=== PATIENT | female | born 1950 | race Caucasian/White ===

== ENCOUNTER → 2017-02-17 | Outpatient (CLI) | payer OTHER ==
[~2017-02-17] MED LIST: AMLO5TAB2 PO; CHOL1000 PO; CYCL10TA6 PO; GLUCTAB7; LPR25 PO; LUTE20CA; MAGN400C2 PO; MULTCHW; POTA20TA16 PO; PSYL0.524; TRAM-10 PO; TRIATAB3 PO; WARF1TAB6 PO; WARF7.5T PO; WARF7.5T4 PO
[2017-02-17 08:52] LABS: BASO % 0.6 %; BASO ABS # 0.03 K/uL (0-0.2); COMPLETE YES; EOS % 1.2 %; HEMATOCRIT 43.9 % (37-47); IG% 0.2 %; LYMPH % 28.6 %; LYMPH ABS # 1.48 K/uL (1.2-3.4); MEAN CORPUSCULAR HEMOGLOBIN 27.8 pg (25-34); MEAN CORPUSCULAR HGB CONC 33.5 g/dl (32-36); MEAN PLATELET VOLUME 10.9 fL (7.4-10.4); MONO % 11.4 %; PLATELET COUNT 176 K/uL (130-400); RED BLOOD COUNT 5.29 M/uL (4.2-5.4); WHITE BLOOD COUNT 5.17 K/uL (4.8-10.8)
[2017-02-17 09:17] LABS: ALT/SGPT 24 U/L (12-78); AST/SGOT 19 U/L (15-37); BLOOD UREA NITROGEN 11 mg/dl (7-18); BUN/CREATININE RATIO 13.4 (10-20); CALCIUM 8.6 mg/dl (8.5-10.1); CARBON DIOXIDE 30 mmol/L (21-32); CHLORIDE 105 mmol/L (98-107); CHOLESTEROL 183 mg/dl (0-200); CREATININE 0.82 mg/dl (0.60-1.20); GLUCOSE 95 mg/dl (70-99); POTASSIUM 3.6 mmol/L (3.5-5.1); SODIUM 142 mmol/L (136-145); TRIGLYCERIDES 146 mg/dl (0-150); VERY LOW DENSITY LIPOPROT CALC 29 mg/dl
[2017-02-17 09:27] LABS: ALB/GLOB RATIO 1.1 (0.9-2); ALKALINE PHOSPHATASE 105 U/L (45-117); CHOLESTEROL/HDL RATIO 3.2; HDL CHOLESTEROL 57 mg/dl; LDL CHOLESTEROL CALCULATED 97 mg/dl
== END | disposition home or self-care (01) ==
LOC: C.LAB 08:03
PROVIDERS: ATTEND Internal Medicine
DX: M54.5 Low back pain (principal)

== ENCOUNTER → 2017-03-12 | Outpatient (CLI) | payer OTHER ==
--- NOTE | 2017-03-13 13:08 | MAMMOGRAPHY REPORT ---
BILATERAL DIGITAL SCREENING MAMMOGRAM WITH CAD: 03/12/2017 CLINICAL HISTORY: Routine screening. Patient has no complaints. TECHNIQUE: Bilateral CC and MLO views were obtained. Current study was also evaluated with a Comput er Aided Detection (CAD) system. COMPARISON: Comparison is made to exams dated: 03/08/2016 mammogram, 03/02/2015 mammogram, 12/25/2013 mammogram, 12/19/2012 mammogram, 12/18/2011 mammogram, and 12/13/2010 mammogram - [facility] nter. BREAST COMPOSITION: There are scattered areas of fibroglandular density in both breasts. FINDINGS: The parenchymal pattern is unchanged. There are a few scattered stable benign-appearing calcifications bilaterally. No developing mass, architectural distortion or cluster of suspicious m icrocalcifications is seen in either breast. IMPRESSION: ACR BI-RADS CATEGORY 2: BENIGN There is no mammographic evidence of malignancy. A 1 year screening mammogram is recommended. The p atient will receive written notification of the results. Approximately 10% of breast cancers are not detected with mammography. A negative mammographic repor t should not delay biopsy if a clinically suggestive mass is present. Isa Siddiqui M.D. ay/:03/12/2017 16:35:59 Clerical Coordinator: Yaquelin SÁNCHEZ(Sandra)(Evan)(BD), [facility] letter sent: Normal 1/2 BI-RADS Code: ACR BI-RADS Category 2: Benign
== END | disposition home or self-care (01) ==
LOC: C.MAMM 15:48
PROVIDERS: ATTEND Obstetrics & Gynecology
DX: Z12.31 Encounter for screening mammogram for malignant neoplasm of breast (principal)

== ENCOUNTER → 2018-02-26 | Outpatient (CLI) | payer OTHER ==
[~2018-02-26] MED LIST changes: +POTA-639 PO; -POTA20TA16 PO; -WARF1TAB6 PO
[2018-02-26 16:42] LABS: BASO % 0.8 %; BASO ABS # 0.05 K/uL (0-0.2); EOS % 1.8 %; EOS ABS # 0.11 K/uL (0-0.5); HEMOGLOBIN 14.2 g/dL (12.0-16.0); LYMPH % 34.8 %; LYMPH ABS # 2.18 K/uL (1.2-3.4); MEAN CELL VOLUME 84.6 fL (80-100); MEAN PLATELET VOLUME 11.3 fL (7.4-10.4); MONO ABS # 0.69 K/uL (0.11-0.59); NEUT % 51.6 %; NEUT ABS # 3.23 K/uL (1.4-6.5); PLATELET COUNT 187 K/uL (130-400); RED CELL DISTRIBUTION WIDTH CV 15.1 % (11.5-14.5); RED CELL DISTRIBUTION WIDTH SD 46.8 fL (36.4-46.3); WHITE BLOOD COUNT 6.26 K/uL (4.8-10.8)
== END | disposition home or self-care (01) ==
LOC: C.LAB1850 15:24
PROVIDERS: ATTEND Nurse Practitioner Family
DX: R21 Rash and other nonspecific skin eruption (principal)

== ENCOUNTER → 2018-03-13 | Outpatient (CLI) | payer OTHER ==
--- NOTE | 2018-03-14 12:41 | MAMMOGRAPHY REPORT ---
BILATERAL DIGITAL SCREENING MAMMOGRAM TOMOSYNTHESIS WITH CAD: 03/13/2018 CLINICAL HISTORY: Routine screening. Patient has no complaints. TECHNIQUE: Breast tomosynthesis in addition to standard 2D mammography was performed. Current study was also evaluated with a Computer Aided Detection (CAD) system. COMPARISON: Comparison is made to exams dated: 03/12/2017 mammogram, 03/08/2016 mammogram, 03/02/2015 ma mmogram, 12/25/2013 mammogram, 12/19/2012 mammogram, and 12/18/2011 mammogram - [facility] er. BREAST COMPOSITION: There are scattered areas of fibroglandular density in both breasts. FINDINGS: There are stable benign-appearing rodlike and coarse calcifications in the breasts. No dejuan picious mass, architectural distortion or cluster of microcalcifications is seen. IMPRESSION: ACR BI-RADS CATEGORY 1: NEGATIVE There is no mammographic evidence of malignancy. A 1 year screening mammogram is recommended. The pa tient will receive written notification of the results. Approximately 10% of breast cancers are not detected with mammography. A negative mammographic report should not delay biopsy if a clinically suggestive mass is present. Isa Siddiqui M.D. ay/:03/13/2018 16:40:47 Manager Restaurant: Mari Andrea, [facility] letter sent: Normal 1/2 BI-RADS Code: ACR BI-RADS Category 1: Negative
== END | disposition home or self-care (01) ==
LOC: C.MAMM 16:21
PROVIDERS: ATTEND Internal Medicine
DX: Z12.31 Encounter for screening mammogram for malignant neoplasm of breast (principal)

== ENCOUNTER → 2018-05-30 | Outpatient (CLI) | payer OTHER ==
[~2018-05-30] MED LIST changes: -GLUCTAB7
[2018-05-30 09:34] LABS: BASO ABS # 0.06 K/uL (0-0.2); EOS % 0.7 %; EOS ABS # 0.04 K/uL (0-0.5); HEMATOCRIT 47.6 % (37-47); LYMPH % 32.4 %; LYMPH ABS # 1.93 K/uL (1.2-3.4); MEAN CELL VOLUME 83.2 fL (80-100); MEAN CORPUSCULAR HGB CONC 33.6 g/dl (32-36); MEAN PLATELET VOLUME 11.4 fL (7.4-10.4); MONO % 11.7 %; NEUT % 54.2 %; NEUT ABS # 3.23 K/uL (1.4-6.5); PLATELET COUNT 188 K/uL (130-400); RED CELL DISTRIBUTION WIDTH CV 14.9 % (11.5-14.5); RED CELL DISTRIBUTION WIDTH SD 45.4 fL (36.4-46.3); WHITE BLOOD COUNT 5.96 K/uL (4.8-10.8)
[2018-05-30 10:12] LABS: ALBUMIN 3.8 gm/dl (3.4-5.0); ALKALINE PHOSPHATASE 104 U/L (45-117); ALT/SGPT 20 U/L (12-78); AST/SGOT 18 U/L (15-37); BLOOD UREA NITROGEN 15 mg/dl (7-18); CALCIUM 8.9 mg/dl (8.5-10.1); CARBON DIOXIDE 30 mmol/L (21-32); CHOLESTEROL 153 mg/dl (0-200); CREATININE 0.95 mg/dl (0.60-1.20); GLUCOSE 91 mg/dl (70-99); LDL CHOLESTEROL CALCULATED 73 mg/dl; POTASSIUM 3.7 mmol/L (3.5-5.1); SODIUM 140 mmol/L (136-145); TOTAL PROTEIN 7.5 gm/dl (6.4-8.2)
== END | disposition home or self-care (01) ==
LOC: C.LAB 07:34
PROVIDERS: ATTEND Internal Medicine
DX: I10 Essential (primary) hypertension (principal); I48.91 Unspecified atrial fibrillation; M13.0 Polyarthritis, unspecified; M54.5 Low back pain; G43.909 Migraine, unspecified, not intractable, without status migrainosus

== ENCOUNTER 2019-02-26 14:25 | Inpatient (IN) ==
[2019-02-26] MEDS ORDERED: dilTIAZem HCl 5 MG/ML 5 ML VIAL IV STA (15:49)
--- NOTE | 2019-02-26 16:01 | XRay Report ---
XR chest 1V portable CLINICAL HISTORY: Chest pain. Chest tightness. COMPARISON STUDY: No previous studies for comparison. FINDINGS: Mild elevation of the right hemidiaphragm is noted. There is no pneumothorax or pleural eff usion. Bibasilar opacities are present. There is mild cardiomegaly. Patient is mildly rotated. There is no evidence for overt pulmonary edema. IMPRESSION: 1. Bibasilar opacities which may reflect pneumonia or atelectasis. Radiographic follow up is recommen ded. 2. Mild cardiomegaly without evidence for overt pulmonary edema. Electronically signed by: Jalen Fraser M.D. 02/26/2019 3:59 PM
[2019-02-26 16:08] LABS: Basophils # (auto) 0.03 K/uL (0-0.2); Basophils % (auto) 0.3 %; Eosinophils # (auto) 0.01 K/uL (0-0.5); Eosinophils % (auto) 0.1 %; Hematocrit (blood only) 46.4 % (37-47); Hemoglobin 15.7 g/dL (12.0-16.0); Immature Granulocytes # (auto) 0.04 K/uL (0.00-0.02); Immature Granulocytes % (auto) 0.3 %; Lymphocytes # (auto) 1.43 K/uL (1.2-3.4); Lymphocytes % (auto) 12.5 %; Mean Corpuscular Hgb Conc 33.8 g/dL (32-36); Mean Corpuscular Volume 85.1 fL (80-100); Mean Platelet Volume 10.3 fL (7.4-10.4); Monocytes # (auto) 1.48 K/uL (0.11-0.59); Monocytes % (auto) 12.9 %; Neutrophils # (auto) 8.45 K/uL (1.4-6.5); Neutrophils % (auto) 73.9 %; Platelet Count 196 K/uL (130-400); RDW Coefficient of Variation 15.2 % (11.5-14.5); RDW Standard Deviation 47.4 fL (36.4-46.3); Red Blood Count 5.45 M/uL (4.2-5.4); White Blood Count 11.44 K/uL (4.8-10.8)
[2019-02-26] MEDS: dilTIAZem HCl 125 MG in DEXTROSE 5% 100 ML IV SCH (16:10)
[2019-02-26 16:21] LABS: INR 2.6 (0.9-1.1); Partial Thromboplastin Ratio 1.4; Partial Thromboplastin Time 37.1 Seconds (21.0-31.0); Prothrombin Time 24.9 Seconds (9.0-12.0)
[2019-02-26 16:31] LABS: Alanine Aminotransferase 45 U/L (12-78); Albumin Level 3.7 gm/dl (3.4-5.0); Aspartate Aminotransferase 56 U/L (15-37); BUN Creatinine Ratio 13.8 (10-20); Blood Urea Nitrogen 11 mg/dl (7-18); Calcium 9.5 mg/dl (8.5-10.1); Carbon Dioxide 28 mmol/L (21-32); Chloride 103 mmol/L (98-107); Creatinine Clr Calc Pharmacy 66.1 ml/min; Est GFR (African American) 85.9; Est GFR (Non-African American) 74.1; Glucose 118 mg/dl (70-99); Potassium 3.8 mmol/L (3.5-5.1); Sodium 138 mmol/L (136-145)
[2019-02-26 16:36] LABS: Albumin Globulin Ratio 0.9 (0.9-2); Alkaline Phosphatase 107 U/L (45-117); Bilirubin,Total 1.4 mg/dl (0.2-1); Globulin 4.2 gm/dl (2.5-4.0); Total Protein 7.9 gm/dl (6.4-8.2); Troponin I < 0.015 ng/ml (0-0.045)
[2019-02-26] MEDS ORDERED: DOXYCYCLINE HYCLATE 100 MG CAP PO STA (16:53)
[2019-02-26] MEDS ORDERED: AZITHROMYCIN 250 MG TAB PO ONE (17:58)
[2019-02-26 18:04] LABS: Influenza A virus by PCR Neg for Influ A (Neg); Influenza B virus by PCR Neg for Influ B (Neg)
[2019-02-26 18:18] LABS: C Reactive Protein 6.83 mg/dl (0-0.29)
[2019-02-26] MEDS ORDERED: cefTRIAXone SODIUM 1000MG/50ML D5W ONE (18:33)
[2019-02-26] MEDS: cefTRIAXone SODIUM 1,000 MG in DEXTROSE 5% 50 ML IV SCH (18:41)
--- NOTE | 2019-02-26 19:12 | History & Physical Report ---
Date of Service February 26, 2019 Assessment & Plan (1) Atrial fibrillation with RVR: She has chronic A. fib which has been long-standing. It appears most likely the physiologic stress from her pneumonia provoked the tachycardia which led to the A. fib/RVR. Currently control is improving on the diltiazem drip. We will continue this titrating to a goal heart rate of 90, as well as give her some additional metoprolol to try to bring her rate down further. This is hopefully going to be a bit of a short-lived event, but likely due to the physiologic stress from the community-acquired pneumonia she will probably need a degree of extra rate control for at least the intermediate future. Anticipate that once we have good rate control she will likely go home on a higher dose of metoprolol than before, but hopefully also over the next month or so this could be slowly weaned back to her prior dose, given that she has had excellent control otherwise in the past. Her chest tightness seems most likely due to the inappropriate tachycardia from RVR. Her EKG does not show overt ischemia. I have put in for a troponin level to ensure that we do not have any ischemia play, although if there was it would almost certainly be a rate related demand ischemia. Should there be any significant rise in troponin then cardiology consult and echocardiogram could be ordered, but I do not anticipate this being an issue. (2) Community acquired pneumonia: Her symptoms mostly fit with upper respiratory infection, but the duration of 2 weeks with ongoing symptoms, her somewhat vague but positive chest x-ray findings, her mild leukocytosis, and her lung exam all seem to corroborate that she has community-acquired pneumonia likely is a secondary "fallout" from her upper respiratory infection as the inciting factor. Will treat with Zithromax, Rocephin, supportive care.*She notes penicillin allergy but it is not anaphylaxis after I discussed this with her. Of note it is listed as anaphylaxis in the chart but I specifically use term such as anaphylaxis, being hospitalized for the allergic reaction, or having to be on a breathing tube for the allergic reaction, and she denied any of those. I believe it was probably labeled as anaphylaxis because when asked what the reaction is she initially says that her throat closes shot, but in clarifying it seems to be more of a sensation than a true reaction given the lack of severity of what she is denise cribing.* (3) Hypoxia: Appears to be secondary to the pneumonia, given her bibasilar rales and somewhat nebulous chest x-ray findings, it is also possible that she has a degree of diastolic failure related pulmonary edema from the RVR. For now we will treat the pneumonia and control the rate, but if the hypoxia seems to be difficult to correct, we may give a therapeutic trial to a dose of IV diuretic. Follow and supportive care for now. (4) Hypertension: We will hold her home amlodipine to "make room" for rate relating agents, otherwise follow and treat with meds as per RVR. (5) DVT prophylaxis: She is already anticoagulated for chronic A. fib. Continue (6) Discharge planning issues: Anticipate the ability to discharge her back home once her hypoxia is corrected the pneumonia is clearing in the RVR is controlled on oral meds. In discussion of CODE STATUS, she notes that she has a living will that states that she would be no heroic measures, but that this is only to be used in the event of terminal or incurable illness. For the context of the current admission she wants to be a full code. History of Present Illness Chief Complaint: chest pressure Primary Care Provider: Zan Mujica MD Patient is a very pleasant 68-year-old female, she notes she has been feeling sick for about 2 weeks with respiratory symptoms and sinus drainage. She has had a cough that is ongoing. She reported in her PCPs office that she felt feverish this morning. She denies any true fevers chills or sweats to me. She notes that she woke up about 1:30 in the morning with tightness or pressure in her chest. It was not going away so she went to see her, there she was found to be tachycardic and so an EKG was checked. She was found to be in A. fib with RVR with a heart rate of about 140, because of this she was sent to the ER for further evaluation. Here she was started on a diltiazem drip her heart rates have slowed and her chest pressure is lightened quite significantly. Is not a 0, but is much better than before. For all of this she denies any chest pain pressure or tightness with any activity or at rest. Is really the first she can recall ever feeling such as sensation. She notes that she also cannot recall ever having A. fib and RVR before. She denies any preceding fatigue or new or worse exercise intolerance. Allergies Allergy/AdvReac Type Severity Reaction Status Date / Time Penicillins Allergy Severe Anaphylaxis Verified 02/26/19 15:10 prednisone AdvReac Unknown Rash Verified 02/26/19 15:10 Home Medications Home Medications Medication Instructions Recorded Confirmed Type amlodipine 5 mg tablet 5 mg PO QAM 08/29/18 02/26/19 History cholecalciferol (vitamin D3) 1,000 1,000 units PO QAM 08/29/18 02/26/19 History unit capsule lutein 20 mg capsule 20 mg PO QAM 08/29/18 02/26/19 History magnesium oxide 400 mg capsule 400 mg PO QAM cap 08/29/18 02/26/19 History metoprolol tartrate 25 mg tablet 25 mg PO QAM tab 08/29/18 02/26/19 History auoudlzz-tqq-dzgfq acid 0.4 1 tab PO QAM 08/29/18 02/26/19 History mg-lycopene 300 mcg-lutein 250 mcg tablet tramadol 50 mg tablet 50 mg PO QAM tab 08/29/18 02/26/19 History triamterene 37.5 1 tab PO QAM 08/29/18 02/26/19 History mg-hydrochlorothiazide 25 mg tablet warfarin 7.5 mg tablet See Rx Instructions PO UD 30 Days 11/13/18 02/26/19 Rx #30 tab calcium carbonate 600 mg calcium 1,200 mg PO BID tab 11/21/18 02/26/19 History (1,500 mg) tablet psyllium husk 0.4 gram capsule 0.4 gm PO BID cap 11/21/18 02/26/19 History potassium chloride 20 meq PO TID 02/26/19 02/26/19 History Past Med/Surg History Medical History Osteopenia Migraine Atrial fibrillation Arthritic-like pain Hypertension lobsterman (current) use of anticoagulants Surgical History History of tonsillectomy H/O tubal ligation Hx of discectomy Family History Sister Sick sinus syndrome Other Heart attack Heart failure Social History marital status: Current Living Situation: Spouse current occupational status: retired Feels Safe at Home: Yes Smoking Status: Never smoker Hx Alcohol Use: No Review of Systems Review of Systems: All systems reviewed & are unremarkable except as noted in HPI & below Physical Exam Vital Signs (Past 24 Hours): Last Vital Signs Temp 37.2 C 02/26/19 14:42 Pulse 100 H 02/26/19 18:30 Resp 17 02/26/19 18:30 BP 108/78 02/26/19 18:30 Pulse Ox 93 02/26/19 18:30 Physical Exam: In general she is awake alert oriented x3 pleasant but fatigued no distress. HEENT normal cephalic atraumatic face is flushed mucous members are moist. Neck shows full range of motion. Cardio is irregularly irregular tachycardic, no rubs murmurs or gallops. Lungs show bibasilar rales no other rhonchi or wheezes, no accessory muscle use good effort. Abdomen is soft nondistended nontender no masses or organomegaly Extremities show no cyanosis clubbing or edema, her anterior shins show a little bit of a petechial type pattern rash that does not adi, patient notes this is chronic. Skin other than above she has no other rashes, pallor, or icterus. Neuro shows cranial nerves II through XII be grossly intact gross motor and sensory intact. Mental status shows good recent and remote recall normal mood and affect good judgment and insight Results & Data Laboratory Results Labs noted, very mild leukocytosis CRP and troponin have been ordered Diagnostic Findings EKG with A. fib RVR no overt ischemic changes, although there is a little bit nonspecific findings in the ST-T segments Chest x-ray shows a bit of a vague bibasilar haziness, radiology reads this could be infiltrate, of note it is a little bit of a difficult to interpret film due to technique (1) Community acquired pneumonia Laterality: unspecified laterality Qualified Code(s): J18.9 - Pneumonia, unspecified organism
--- NOTE | 2019-02-26 20:54 | Emergency Department Note ---
Entered by Deena Perez acting as a scribe for Lenin Rome M.D. History of Present Illness General Chief complaint: Chest Pain Source: patient History of Present Illness Onset (ago): hour(s) (12) Location: chest Radiation: non-radiation Pain Consistency: + other (persistent) Maximum Pain Intensity: 2 Current Pain Intensity: 10 Quality: + other (pressure) Relieved By: + other (Mucinex) Associated symptoms: + denies other symptoms (diarrhea, leg swelling, muscle aches), + cough and + other (rhinorrhea, sore throat); no nausea/vomiting and no shortness of breath The patient is a 68 year old female who presents to the Emergency Room with complaints of persistent chest pain starting 12 hours ago. The patient states that she woke up out of her sleep with centralized chest pressure. She states that the pain at its worst was a 10/10 in severity. She states that it has gotten better, but she still has it. The patient states that she went to her PCP today because of her symptoms and was unsure if it was from reflux or something else. She reports that they sent her over here to the ED. The patient complains of recent cold symptoms. She notes that she has had a runny nose, sore throat, and has been coughing up mucus. She states that she has been taking Mucinex with mild relief. The patient notes that she is on Coumadin and her INR has been fine. The patient denies taking aspirin, the pain radiating anywhere, trouble breathing, nausea, vomiting, diarrhea, leg swelling, muscle aches, recent travel, missing any medications, a history of heart attacks, a history of heart failure, and a history of diabetes. Home Medications Home Medications Medication Instructions Recorded Confirmed Type amlodipine 5 mg tablet 5 mg PO QAM 08/29/18 02/26/19 History cholecalciferol (vitamin D3) 1,000 1,000 units PO QAM 08/29/18 02/26/19 History unit capsule lutein 20 mg capsule 20 mg PO QAM 08/29/18 02/26/19 History magnesium oxide 400 mg capsule 400 mg PO QAM cap 08/29/18 02/26/19 History metoprolol tartrate 25 mg tablet 25 mg PO QAM tab 08/29/18 02/26/19 History xyrqrkyy-cpy-njcjv acid 0.4 1 tab PO QAM 08/29/18 02/26/19 History mg-lycopene 300 mcg-lutein 250 mcg tablet tramadol 50 mg tablet 50 mg PO QAM tab 08/29/18 02/26/19 History triamterene 37.5 1 tab PO QAM 08/29/18 02/26/19 History mg-hydrochlorothiazide 25 mg tablet warfarin 7.5 mg tablet See Rx Instructions PO UD 30 Days 11/13/18 02/26/19 Rx #30 tab calcium carbonate 600 mg calcium 1,200 mg PO BID tab 11/21/18 02/26/19 History (1,500 mg) tablet psyllium husk 0.4 gram capsule 0.4 gm PO BID cap 11/21/18 02/26/19 History potassium chloride 20 meq PO TID 02/26/19 02/26/19 History Allergies Allergy/AdvReac Type Severity Reaction Status Date / Time Penicillins Allergy Severe Anaphylaxis Verified 02/26/19 15:10 prednisone AdvReac Unknown Rash Verified 02/26/19 15:10 Past Med/Surg History Medical History Osteopenia Migraine Atrial fibrillation Arthritic-like pain Hypertension alf (current) use of anticoagulants Surgical History History of tonsillectomy H/O tubal ligation Hx of discectomy Family History Sister Sick sinus syndrome Other Heart attack Heart failure Social History Preferred Language: Faroese Access Manager Required: No Beliefs That Will Affect Care: None marital status: Current Living Situation: Spouse current occupational status: retired Feels Safe at Home: Yes Safety Concerns: Feels Safe At This Time Smoking Status: Never smoker Hx Alcohol Use: No Hx Substance Use: No Review of Systems See HPI for pertinent positives & negatives. and A total of 10 systems reviewed and were otherwise negative Physical Exam Vital Signs Vital Signs - 24 hr 02/26/19 14:42 02/26/19 15:00 02/26/19 15:30 Temperature 37.2 C Temperature Source Oral Sepsis Recent Fever Within 48 Hours No Sepsis New/Unexplained Change in Mental Status No Sepsis Action Taken by Nursing No Action Required Pulse Rate 130 H 120 H 132 H Pulse Rate [Left Finger] Pulse Rate from SpO2 Sensor 124 H 127 H Respiratory Rate 18 24 31 H Respiratory Effort / Characteristics Respiratory Depth Respiratory Pattern Blood Pressure 132/87 127/94 Blood Pressure [Right Arm] Blood Pressure Mean 102 105 Blood Pressure Mean [Right Arm] Blood Pressure Position [Right Arm] Pulse Oximetry 93 92 93 Oxygen Delivery Method Nasal Cannula Nasal Cannula Nasal Cannula Oxygen Flow Rate 4 4 5 02/26/19 15:39 02/26/19 15:49 02/26/19 16:00 Temperature Temperature Source Sepsis Recent Fever Within 48 Hours Sepsis New/Unexplained Change in Mental Status Sepsis Action Taken by Nursing Pulse Rate 151 H Pulse Rate [Left Finger] Pulse Rate from SpO2 Sensor 138 H Respiratory Rate 23 Respiratory Effort / Characteristics Respiratory Depth Respiratory Pattern Blood Pressure Blood Pressure [Right Arm] Blood Pressure Mean Blood Pressure Mean [Right Arm] Blood Pressure Position [Right Arm] Pulse Oximetry 92 95 91 Oxygen Delivery Method Nasal Cannula Nasal Cannula Oxygen Flow Rate 4 5 02/26/19 16:01 02/26/19 16:04 02/26/19 16:05 Temperature Temperature Source Sepsis Recent Fever Within 48 Hours Sepsis New/Unexplained Change in Mental Status Sepsis Action Taken by Nursing Pulse Rate 152 H 116 H 113 H Pulse Rate [Left Finger] Pulse Rate from SpO2 Sensor 127 H 114 H 123 H Respiratory Rate 25 H 20 30 H Respiratory Effort / Characteristics Respiratory Depth Respiratory Pattern Blood Pressure 128/95 112/67 108/83 Blood Pressure [Right Arm] Blood Pressure Mean 106 82 91 Blood Pressure Mean [Right Arm] Blood Pressure Position [Right Arm] Pulse Oximetry 91 89 L 90 Oxygen Delivery Method Oxygen Flow Rate 02/26/19 16:10 02/26/19 16:15 02/26/19 16:20 Temperature Temperature Source Sepsis Recent Fever Within 48 Hours Sepsis New/Unexplained Change in Mental Status Sepsis Action Taken by Nursing Pulse Rate 127 H 128 H 117 H Pulse Rate [Left Finger] Pulse Rate from SpO2 Sensor 125 H 123 H 118 H Respiratory Rate 24 27 H 25 H Respiratory Effort / Characteristics Respiratory Depth Respiratory Pattern Blood Pressure 115/88 138/81 126/94 Blood Pressure [Right Arm] Blood Pressure Mean 97 100 104 Blood Pressure Mean [Right Arm] Blood Pressure Position [Right Arm] Pulse Oximetry 90 94 90 Oxygen Delivery Method Oxygen Flow Rate 3 02/26/19 16:26 02/26/19 16:30 02/26/19 16:31 Temperature Temperature Source Sepsis Recent Fever Within 48 Hours Sepsis New/Unexplained Change in Mental Status Sepsis Action Taken by Nursing Pulse Rate 97 H 117 H 112 H Pulse Rate [Left Finger] Pulse Rate from SpO2 Sensor 102 H 119 H 124 H Respiratory Rate 19 27 H 26 H Respiratory Effort / Characteristics Respiratory Depth Respiratory Pattern Blood Pressure 90/77 L 126/87 Blood Pressure [Right Arm] Blood Pressure Mean 81 100 Blood Pressure Mean [Right Arm] Blood Pressure Position [Right Arm] Pulse Oximetry 95 95 96 Oxygen Delivery Method Oxygen Flow Rate 02/26/19 16:35 02/26/19 16:41 02/26/19 16:45 Temperature Temperature Source Sepsis Recent Fever Within 48 Hours Sepsis New/Unexplained Change in Mental Status Sepsis Action Taken by Nursing Pulse Rate 114 H 107 H 126 H Pulse Rate [Left Finger] Pulse Rate from SpO2 Sensor 109 H 104 H 118 H Respiratory Rate 19 23 27 H Respiratory Effort / Characteristics Respiratory Depth Respiratory Pattern Blood Pressure 139/87 131/101 H 121/94 Blood Pressure [Right Arm] Blood Pressure Mean 104 111 103 Blood Pressure Mean [Right Arm] Blood Pressure Position [Right Arm] Pulse Oximetry 94 94 94 Oxygen Delivery Method Oxygen Flow Rate 3 02/26/19 16:50 02/26/19 16:55 02/26/19 17:00 Temperature Temperature Source Sepsis Recent Fever Within 48 Hours Sepsis New/Unexplained Change in Mental Status Sepsis Action Taken by Nursing Pulse Rate 111 H 134 H 119 H Pulse Rate [Left Finger] Pulse Rate from SpO2 Sensor 114 H 135 H 115 H Respiratory Rate 20 26 H 24 Respiratory Effort / Characteristics Respiratory Depth Respiratory Pattern Blood Pressure 138/102 H 127/91 126/96 Blood Pressure [Right Arm] Blood Pressure Mean 114 103 106 Blood Pressure Mean [Right Arm] Blood Pressure Position [Right Arm] Pulse Oximetry 94 94 94 Oxygen Delivery Method Oxygen Flow Rate 02/26/19 17:05 02/26/19 17:11 02/26/19 17:15 Temperature Temperature Source Sepsis Recent Fever Within 48 Hours Sepsis New/Unexplained Change in Mental Status Sepsis Action Taken by Nursing Pulse Rate 127 H 111 H 128 H Pulse Rate [Left Finger] Pulse Rate from SpO2 Sensor 128 H 121 H 119 H Respiratory Rate 27 H 23 27 H Respiratory Effort / Characteristics Respiratory Depth Respiratory Pattern Blood Pressure 134/69 122/91 122/94 Blood Pressure [Right Arm] Blood Pressure Mean 90 101 103 Blood Pressure Mean [Right Arm] Blood Pressure Position [Right Arm] Pulse Oximetry 93 93 91 Oxygen Delivery Method Nasal Cannula Oxygen Flow Rate 3 02/26/19 17:26 02/26/19 17:30 02/26/19 17:36 Temperature Temperature Source Sepsis Recent Fever Within 48 Hours Sepsis New/Unexplained Change in Mental Status Sepsis Action Taken by Nursing Pulse Rate 109 H 136 H 108 H Pulse Rate [Left Finger] Pulse Rate from SpO2 Sensor 114 H 123 H 105 H Respiratory Rate 27 H 24 21 Respiratory Effort / Characteristics Respiratory Depth Respiratory Pattern Blood Pressure 120/80 123/82 128/85 Blood Pressure [Right Arm] Blood Pressure Mean 93 95 99 Blood Pressure Mean [Right Arm] Blood Pressure Position [Right Arm] Pulse Oximetry 93 93 91 Oxygen Delivery Method Oxygen Flow Rate 02/26/19 17:40 02/26/19 17:45 02/26/19 17:46 Temperature Temperature Source Sepsis Recent Fever Within 48 Hours Sepsis New/Unexplained Change in Mental Status Sepsis Action Taken by Nursing Pulse Rate 104 H 127 H 120 H Pulse Rate [Left Finger] Pulse Rate from SpO2 Sensor 116 H 117 H 120 H Respiratory Rate 24 25 H 29 H Respiratory Effort / Characteristics Respiratory Depth Respiratory Pattern Blood Pressure 120/96 136/88 Blood Pressure [Right Arm] Blood Pressure Mean 104 104 Blood Pressure Mean [Right Arm] Blood Pressure Position [Right Arm] Pulse Oximetry 93 94 94 Oxygen Delivery Method Oxygen Flow Rate 02/26/19 17:51 02/26/19 17:55 02/26/19 18:00 Temperature Temperature Source Sepsis Recent Fever Within 48 Hours Sepsis New/Unexplained Change in Mental Status Sepsis Action Taken by Nursing Pulse Rate 132 H 111 H 112 H Pulse Rate [Left Finger] Pulse Rate from SpO2 Sensor 129 H 109 H 105 H Respiratory Rate 21 28 H 23 Respiratory Effort / Characteristics Respiratory Depth Respiratory Pattern Blood Pressure 118/93 132/88 126/85 Blood Pressure [Right Arm] Blood Pressure Mean 101 102 98 Blood Pressure Mean [Right Arm] Blood Pressure Position [Right Arm] Pulse Oximetry 94 93 93 Oxygen Delivery Method Oxygen Flow Rate 02/26/19 18:06 02/26/19 18:10 02/26/19 18:15 Temperature Temperature Source Sepsis Recent Fever Within 48 Hours Sepsis New/Unexplained Change in Mental Status Sepsis Action Taken by Nursing Pulse Rate 114 H 110 H 104 H Pulse Rate [Left Finger] Pulse Rate from SpO2 Sensor 119 H 112 H 114 H Respiratory Rate 20 30 H 26 H Respiratory Effort / Characteristics Respiratory Depth Respiratory Pattern Blood Pressure 116/86 123/96 Blood Pressure [Right Arm] Blood Pressure Mean 96 105 Blood Pressure Mean [Right Arm] Blood Pressure Position [Right Arm] Pulse Oximetry 93 93 92 Oxygen Delivery Method Oxygen Flow Rate 02/26/19 18:16 02/26/19 18:21 02/26/19 18:30 Temperature Temperature Source Sepsis Recent Fever Within 48 Hours Sepsis New/Unexplained Change in Mental Status Sepsis Action Taken by Nursing Pulse Rate 108 H 138 H 100 H Pulse Rate [Left Finger] Pulse Rate from SpO2 Sensor 110 H 127 H 100 H Respiratory Rate 25 H 19 17 Respiratory Effort / Characteristics Respiratory Depth Respiratory Pattern Blood Pressure 113/99 116/90 108/78 Blood Pressure [Right Arm] Blood Pressure Mean 103 98 88 Blood Pressure Mean [Right Arm] Blood Pressure Position [Right Arm] Pulse Oximetry 92 95 93 Oxygen Delivery Method Oxygen Flow Rate 02/26/19 18:45 02/26/19 18:57 02/26/19 19:00 Temperature Temperature Source Sepsis Recent Fever Within 48 Hours Sepsis New/Unexplained Change in Mental Status Sepsis Action Taken by Nursing Pulse Rate 112 H 105 H Pulse Rate [Left Finger] Pulse Rate from SpO2 Sensor 107 H 100 H Respiratory Rate 23 18 Respiratory Effort / Characteristics Respiratory Depth Respiratory Pattern Blood Pressure 98/75 L 110/77 Blood Pressure [Right Arm] Blood Pressure Mean 82 88 Blood Pressure Mean [Right Arm] Blood Pressure Position [Right Arm] Pulse Oximetry 92 93 92 Oxygen Delivery Method Nasal Cannula Oxygen Flow Rate 3 02/26/19 19:30 Temperature 36.7 C Temperature Source Oral Sepsis Recent Fever Within 48 Hours Sepsis New/Unexplained Change in Mental Status Sepsis Action Taken by Nursing Pulse Rate Pulse Rate [Left Finger] 107 H Pulse Rate from SpO2 Sensor Respiratory Rate 16 Respiratory Effort / Characteristics Non-Labored Spontaneous Respiratory Depth Normal Respiratory Pattern Regular Blood Pressure Blood Pressure [Right Arm] 118/84 Blood Pressure Mean Blood Pressure Mean [Right Arm] 95 Blood Pressure Position [Right Arm] Lying Pulse Oximetry 92 Oxygen Delivery Method Nasal Cannula Oxygen Flow Rate 4 GENERAL: Awake, alert, fatigued-appearing, in no distress HENT: Normocephalic, atraumatic. EYES: Normal conjunctiva. Sclera non-icteric. NECK: Supple. No nuchal rigidity. RESPIRATORY: Diminished bases. Normal respiratory effort. CARDIAC: Tachycardic rate. Irregularly irregular rhythm. Extremities warm and well perfused. GI: Soft, non-distended. No tenderness to palpation. No rebound or guarding. RECTAL: Deferred. MUSCULOSKELETAL: Atraumatic. Chest examination reveals no tenderness. LOWER EXTREMITIES: Calves are equal size bilaterally and non-tender. No edema NEURO: Normal sensorium. No sensory or motor deficits noted. No facial droop. SKIN: Warm and dry. No rash or jaundice noted. Course 1542: The patient was evaluated in room A9A, and a complete history and physical examination were performed. 1700: I reevaluated the patient and updated her at this time. I discussed the treatment plan with her. She verbally agrees and understands. 1711: I reviewed the patient's case with Dr. Mehrdad ZAMORA Hospitalist. He will evaluate the patient for further management. Consultations Consultation #1: I reviewed the patient's case with Dr. Mehrdad ZAMORA Hospitalist. He will evaluate the patient for further management. Time: 17:11 Administered Medications Diltiazem HCl 125 mg/ Dextrose 125 mls @ 5 mls/hr IV .Q24H MARILY; Protocol Stop: 03/28/19 15:59 Last Titration: 02/26/19 18:30 Dose: 15 mg/hr, 15 mls/hr Documented by: [id number] Titration: 02/26/19 17:14 Dose: 10 mg/hr, 10 mls/hr Documented by: [id number] Titration: 02/26/19 16:51 Dose: 7.5 mg/hr, 7.5 mls/hr Documented by: [id number] Admin: 02/26/19 16:10 Dose: 5 mg/hr, 5 mls/hr Documented by: [id number] Cosigned by: [id number] Ceftriaxone Sodium 1,000 mg/ (Dextrose) 50 mls @ 100 mls/hr IV Q24H MARILY; Protocol Stop: 03/05/19 17:59 Last Admin: 02/26/19 18:41 Dose: Not Given Documented by: [id number] Discontinued Medications Azithromycin (Zithromax) 500 mg PO NOW ONE Stop: 02/26/19 17:59 Last Admin: 02/26/19 18:38 Dose: 500 mg Documented by: [id number] Ceftriaxone Sodium (Rocephin) Confirm Administered Dose 1,000 mg .ROUTE .[facility] Stop: 02/26/19 18:34 Last Admin: 02/26/19 18:38 Dose: 1,000 mg Documented by: [id number] Diltiazem HCl (Cardizem) 10 mg IV NOW STA Stop: 02/26/19 15:50 Last Admin: 02/26/19 16:01 Dose: 10 mg Documented by: [id number] Cosigned by: [id number] Doxycycline Hyclate (Vibramycin) 100 mg PO NOW STA Stop: 02/26/19 16:54 Last Admin: 02/26/19 17:19 Dose: 100 mg Documented by: [id number] Medical Decision Making Differential Diagnosis Differential diagnosis: Etiologies such as shingles, musculoskeletal pain, pericarditis, myocarditis, cardiac ischemia, pericardial tamponade, pneumonia, pneumothorax, pleural effusion, hemothorax, pleurisy, aortic pathology, pulmonary embolism, intra- abdominal process, as well as others were considered. Medical Records Attestation: I reviewed the patient's medical records. Home Medications Current Medication List: was personally reviewed by me Laboratory Data Attestation: I reviewed the patient's lab results. Result diagrams: 02/26/19 15:58 02/26/19 15:58 Lab Results 02/26/19 02/26/19 02/26/19 Range/Units 15:58 15:58 15:58 WBC 11.44 H (4.8-10.8) K/uL RBC 5.45 H (4.2-5.4) M/uL Hgb 15.7 (12.0-16.0) g/dL Hct 46.4 (37-47) % MCV 85.1 (80-100) fL MCH 28.8 (25-34) pg MCHC 33.8 (32-36) g/dL RDW Std Deviation 47.4 H (36.4-46.3) fL RDW Coeff of [place] 15.2 H (11.5-14.5) % Plt Count 196 (130-400) K/uL MPV 10.3 (7.4-10.4) fL Immature Gran % (Auto) 0.3 % Neut % (Auto) 73.9 % Lymph % (Auto) 12.5 % Heard % (Auto) 12.9 % Eos % (Auto) 0.1 % Baso % (Auto) 0.3 % Immature Gran # (Auto) 0.04 H (0.00-0.02) K/uL Neut # (Auto) 8.45 H (1.4-6.5) K/uL Lymph # (Auto) 1.43 (1.2-3.4) K/uL Heard # (Auto) 1.48 H (0.11-0.59) K/uL Eos # (Auto) 0.01 (0-0.5) K/uL Baso # (Auto) 0.03 (0-0.2) K/uL PT 24.9 H (9.0-12.0) Seconds INR 2.6 H (0.9-1.1) APTT 37.1 H (21.0-31.0) Seconds PTT Ratio 1.4 Sodium 138 (136-145) mmol/L Potassium 3.8 (3.5-5.1) mmol/L Chloride 103 (98-107) mmol/L Carbon Dioxide 28 (21-32) mmol/L Anion Gap 7.0 (3-11) BUN 11 (7-18) mg/dl Creatinine 0.81 (0.6-1.2) mg/dl Est Cr Clr Drug Dosing 66.1 ml/min Est GFR ( Amer) 85.9 Est GFR (Non-Af Amer) 74.1 BUN/Creatinine Ratio 13.8 (10-20) Glucose 118 H (70-99) mg/dl Calcium 9.5 (8.5-10.1) mg/dl Magnesium 2.0 (1.8-2.4) mg/dl Total Bilirubin 1.4 H (0.2-1) mg/dl AST 56 H (15-37) U/L ALT 45 (12-78) U/L Alkaline Phosphatase 107 (45-117) U/L Troponin I < 0.015 (0-0.045) ng/ml C-Reactive Protein 6.83 H (0-0.29) mg/dl Total Protein 7.9 (6.4-8.2) gm/dl Albumin 3.7 (3.4-5.0) gm/dl Globulin 4.2 H (2.5-4.0) gm/dl Albumin/Globulin Ratio 0.9 (0.9-2) Lipase 76 (73-393) U/L Influenza Type A (PCR) (Neg) Influenza Type B (PCR) (Neg) 02/26/19 02/26/19 Range/Units 17:20 19:46 WBC (4.8-10.8) K/uL RBC (4.2-5.4) M/uL Hgb (12.0-16.0) g/dL Hct (37-47) % MCV (80-100) fL MCH (25-34) pg MCHC (32-36) g/dL RDW Std Deviation (36.4-46.3) fL RDW Coeff of [place] (11.5-14.5) % Plt Count (130-400) K/uL MPV (7.4-10.4) fL Immature Gran % (Auto) % Neut % (Auto) % Lymph % (Auto) % Heard % (Auto) % Eos % (Auto) % Baso % (Auto) % Immature Gran # (Auto) (0.00-0.02) K/uL Neut # (Auto) (1.4-6.5) K/uL Lymph # (Auto) (1.2-3.4) K/uL Heard # (Auto) (0.11-0.59) K/uL Eos # (Auto) (0-0.5) K/uL Baso # (Auto) (0-0.2) K/uL PT (9.0-12.0) Seconds INR (0.9-1.1) APTT (21.0-31.0) Seconds PTT Ratio Sodium (136-145) mmol/L Potassium (3.5-5.1) mmol/L Chloride (98-107) mmol/L Carbon Dioxide (21-32) mmol/L Anion Gap (3-11) BUN (7-18) mg/dl Creatinine (0.6-1.2) mg/dl Est Cr Clr Drug Dosing ml/min Est GFR ( Amer) Est GFR (Non-Af Amer) BUN/Creatinine Ratio (10-20) Glucose (70-99) mg/dl Calcium (8.5-10.1) mg/dl Magnesium (1.8-2.4) mg/dl Total Bilirubin (0.2-1) mg/dl AST (15-37) U/L ALT (12-78) U/L Alkaline Phosphatase (45-117) U/L Troponin I < 0.015 (0-0.045) ng/ml C-Reactive Protein (0-0.29) mg/dl Total Protein (6.4-8.2) gm/dl Albumin (3.4-5.0) gm/dl Globulin (2.5-4.0) gm/dl Albumin/Globulin Ratio (0.9-2) Lipase (73-393) U/L Influenza Type A (PCR) Neg for Influ A (Neg) Influenza Type B (PCR) Neg for Influ B (Neg) Imaging Data Radiologist's Impression: Radiology results as stated below per my review and the radiologist's interpretation: XR chest 1V portable CLINICAL HISTORY: Chest pain. Chest tightness. COMPARISON STUDY: No previous studies for comparison. FINDINGS: Mild elevation of the right hemidiaphragm is noted. There is no pneumothorax or pleural effusion. Bibasilar opacities are present. There is mild cardiomegaly. Patient is mildly rotated. There is no evidence for overt pulmonary edema. IMPRESSION: 1. Bibasilar opacities which may reflect pneumonia or atelectasis. Radiographic follow up is recommended. 2. Mild cardiomegaly without evidence for overt pulmonary edema. Electronically signed by: Jalen Fraser M.D. 02/26/2019 3:59 PM ECG Data Attestation: I personally reviewed and interpreted this ECG as follows: Indication: chest pain Rate (beats per minute): 130 Rhythm: atrial fibrillation (with RVR) Findings: + other (LAD); no ST elevation Blood Pressure Blood Pressure Findings: Normal blood pressure Blood Pressure Disposition: did not require urgent referral MDM Narrative Patient is a 68-year-old female presenting today complaining of chest pressure starting at 1 AM last night. States she is been compliant with her home m edications. Has had some few cold symptoms and is taking some Mucinex. Noted to be in atrial fibrillation rapid ventricular response upon arrival here. X- ray does not show evidence of significant pulmonary edema but questionable bibasilar opacities for pneumonia. Patient is newly hypoxic. I doubt PE given her anticoagulation status. Slight leukocytosis noted. Given diltiazem for rate control. Patient with slight leukocytosis. Negative troponin. Diltiazem bolus and drip improving rate control but still rapid. Given the oxygen need and questionable x-ray findings given a dose of doxycycline here for possible pneumonia. Unsure if this is the primary cause of her A. fib RVR and hypoxia versus the A. fib RVR being the primary. Given this persistent tachycardia on the drip and hypoxia believe she requires admission discussed with the hospitalist for further evaluation and management Impression & Plan Atrial fibrillation with RVR, Community acquired pneumonia Critical Care Time I have personally spent 30 minutes of critical care time in the direct management of this patient. This includes bedside care, interpretation of diagnostic studies, and testing, discussion with consultants, patient, and family members, and other required patient management activities. This 30 minutes is in excess of all separately billable procedures. Critical Care Time: Yes Total Critical Care Time: 30 Discharge Plan Visit Data *Final* Discharge Date/Time: 02/26/19 18:57 Chief Complaint: Chest Pain ED Provider: Lenin Rome Discharge Problem: Atrial fibrillation with RVR, Community acquired pneumonia Patient Disposition: Admitted As Inpatient Discharge Instructions Interventions: ED Discharge Assessment Last Done: 02/26/19 18:57 Discharge Problem: Community acquired pneumonia Qualifiers: Laterality: unspecified laterality Qualified Code(s): J18.9 - Pneumonia, unspecified organism The scribe's documentation has been prepared under my direction and personally reviewed by me in its entirety. I confirm that the note above accurately reflects all work, treatment, procedures, and medical decision making performed by me.
[2019-02-26] MEDS ORDERED: WARFARIN SOD 7.5 MG TAB PO ONE (21:09)
[2019-02-27] MEDS: dilTIAZem HCl 125 MG in DEXTROSE 5% 100 ML IV SCH ×3 (00:56→15:50)
[2019-02-27 06:07] LABS: Basophils # (auto) 0.02 K/uL (0-0.2); Basophils % (auto) 0.2 %; Hematocrit (blood only) 41.9 % (37-47); Hemoglobin 14.2 g/dL (12.0-16.0); Immature Granulocytes # (auto) 0.04 K/uL (0.00-0.02); Immature Granulocytes % (auto) 0.4 %; Lymphocytes # (auto) 1.55 K/uL (1.2-3.4); Lymphocytes % (auto) 14.1 %; Mean Corpuscular Hgb Conc 33.9 g/dL (32-36); Mean Corpuscular Volume 83.6 fL (80-100); Mean Platelet Volume 10.7 fL (7.4-10.4); Monocytes # (auto) 1.67 K/uL (0.11-0.59); Monocytes % (auto) 15.2 %; Neutrophils # (auto) 7.69 K/uL (1.4-6.5); Neutrophils % (auto) 70.1 %; Platelet Count 172 K/uL (130-400); Red Blood Count 5.01 M/uL (4.2-5.4); White Blood Count 10.97 K/uL (4.8-10.8)
[2019-02-27 06:31] LABS: Calcium 8.7 mg/dl (8.5-10.1); Creatinine Clr Calc Pharmacy 67.6 ml/min; Est GFR (African American) 84.6; Potassium 3.6 mmol/L (3.5-5.1)
[2019-02-27 06:51] LABS: Prothrombin Time 19.3 Seconds (9.0-12.0)
--- NOTE | 2019-02-27 07:59 | Family Medicine Progress Note ---
Date of Service February 27, 2019 Assessment & Plan (1) Atrial fibrillation with RVR: Ms. Hobson is a 68yo with history of atrial fibrillation controlled with metoprolol tartrate 25mg and anticoagulated with warfarin. She was sent over by her PCP after being found to be in a fib with rvr with HR in the 140s. Atrial Fibrillation with RVR -Likely set off by pt's URI/pneumonia symptoms. -Currently on a diltiazem drip. Still not rate controlled. -Symptomatically improving however. -Pt also hypotensive. Will give fluid bolus. -Trops negative -Continue to hold home metoprolol. -If BPs improve may restart metoprolol later today to initiate transition to PO control. -Continue home warfarin. Dose today of 3.75mg. - INR therapeutic at 2.0 today but downtrending from 2.6 yesterday. Pneumonia -Likely community acquired pneumonia -Currently being treated with a z-pack and Rocephin -Continue O2 supplementation. Hypoxia -Continue O2 supplementation -Likely secondary to pneumonia but cardiac cause cannot be ruled out currently. -Will continue to monitor HTN -Currently HYPOtensive -Continue to hold home amlodipine (pt on diltiazem) and diuretic. -Metoprolol also currently held. DVT Prophylaxis: On warfarin for a fib anticoagulation FEN: Heart healthy Dispo: home once afib rate controlled, hypoxia resolved. Supervising Physician Co-Signing Physician Notes I personally examined the patient and verified all saldaña points of history and exam, discussed case, and agree with decision making with Dr Delgadillo feeling better. breathing better. HR still fast but improving. no other new complaints vitals noted nad breathing unlabored lungs more clear - faint rales R worse than L but still present - less than yesterday. afib still 110's range at the time i see her afib/RVR - seems to be provoked by pneumonia. treat underlying cause. did improve w 1L fluids, so likely pneumonia related volume depletion at play as well. continue dilt gtt. anticipate transitioning to PO metoprolol in near future. anticoagulated CAP - improving. continue zithromax/rocephin, supportive care hypoxia - stable, but not yet improving. continue to follow and low threshold for lasix for outside possibility of acute rate related diastolic CHF - but rales improving, she feels better - continue current care for now DVT proph - anticoagulated Subjective Ms. Hobson states that her chest pain is resolving. Not associated with SOB or subjective palpitations. States she still feels tired. Had a sore throat, fevers, and head and nasal congestion that started approximately 2 weeks ago. Denies headache, dizziness, N/V, diarrhea or constipation currently. Review of Systems Review of Systems: All systems reviewed & are unremarkable except as noted in HPI & below Physical Exam Physical Exam: General: Alert, oriented. No acute distress HEENT: NC/AT, NC in nares Neck: No lymphadenopathy appreciated, no signs of JVD Chest: Nontender to palpation. CV: Irregularly irregular rate Resp: Breath sounds decreased bilaterally on back, no increased effort of breathing. Abdomen: Soft, nontender. No guarding. Extremities: No edema appreciated in lower extremities bilaterally. Results & Data Vital Signs (Past 12 Hours) Vital Signs Temp Pulse Pulse Resp BP BP Pulse Ox 02/27/19 07:09 36.4 C L 101 H 22 89/66 L 92 02/27/19 06:10 106/72 02/27/19 04:02 36.9 C 91 H 19 101/67 92 02/27/19 00:00 91 H 02/26/19 23:20 36.7 C 102 H 20 106/71 94 Laboratory Results Laboratory Results - last 24 hr 02/26/19 02/26/19 02/26/19 15:58 15:58 15:58 WBC 11.44 H RBC 5.45 H Hgb 15.7 Hct 46.4 MCV 85.1 MCH 28.8 MCHC 33.8 RDW Std Deviation 47.4 H RDW Coeff of [place] 15.2 H Plt Count 196 MPV 10.3 Immature Gran % (Auto) 0.3 Neut % (Auto) 73.9 Lymph % (Auto) 12.5 [place] % (Auto) 12.9 Eos % (Auto) 0.1 Baso % (Auto) 0.3 Immature Gran # (Auto) 0.04 H Neut # (Auto) 8.45 H Lymph # (Auto) 1.43 [place] # (Auto) 1.48 H Eos # (Auto) 0.01 Baso # (Auto) 0.03 PT 24.9 H INR 2.6 H APTT 37.1 H PTT Ratio 1.4 Sodium 138 Potassium 3.8 Chloride 103 Carbon Dioxide 28 Anion Gap 7.0 BUN 11 Creatinine 0.81 Est Cr Clr Drug Dosing 66.1 Est GFR ( Amer) 85.9 Est GFR (Non-Af Amer) 74.1 BUN/Creatinine Ratio 13.8 Glucose 118 H Calcium 9.5 Magnesium 2.0 Total Bilirubin 1.4 H AST 56 H ALT 45 Alkaline Phosphatase 107 Troponin I < 0.015 C-Reactive Protein 6.83 H Total Protein 7.9 Albumin 3.7 Globulin 4.2 H Albumin/Globulin Ratio 0.9 Lipase 76 Hepatitis C Ab Screen Influenza Type A (PCR) Influenza Type B (PCR) 02/26/19 02/26/19 02/26/19 17:20 19:46 19:46 WBC RBC Hgb Hct MCV MCH MCHC RDW Std Deviation RDW Coeff of [place] Plt Count MPV Immature Gran % (Auto) Neut % (Auto) Lymph % (Auto) [place] % (Auto) Eos % (Auto) Baso % (Auto) Immature Gran # (Auto) Neut # (Auto) Lymph # (Auto) [place] # (Auto) Eos # (Auto) Baso # (Auto) PT INR APTT PTT Ratio Sodium Potassium Chloride Carbon Dioxide Anion Gap BUN Creatinine Est Cr Clr Drug Dosing Est GFR ( Amer) Est GFR (Non-Af Amer) BUN/Creatinine Ratio Glucose Calcium Magnesium Total Bilirubin AST ALT Alkaline Phosphatase Troponin I < 0.015 C-Reactive Protein Total Protein Albumin Globulin Albumin/Globulin Ratio Lipase Hepatitis C Ab Screen Neg Influenza Type A (PCR) Neg for Influ A Influenza Type B (PCR) Neg for Influ B 02/27/19 02/27/19 02/27/19 05:27 05:27 05:27 WBC 10.97 H RBC 5.01 Hgb 14.2 Hct 41.9 MCV 83.6 MCH 28.3 MCHC 33.9 RDW Std Deviation 46.0 RDW Coeff of [place] 15.0 H Plt Count 172 MPV 10.7 H Immature Gran % (Auto) 0.4 Neut % (Auto) 70.1 Lymph % (Auto) 14.1 [place] % (Auto) 15.2 Eos % (Auto) 0.0 Baso % (Auto) 0.2 Immature Gran # (Auto) 0.04 H Neut # (Auto) 7.69 H Lymph # (Auto) 1.55 [place] # (Auto) 1.67 H Eos # (Auto) 0.00 Baso # (Auto) 0.02 PT 19.3 H INR 2.0 H APTT PTT Ratio Sodium 138 Potassium 3.6 Chloride 103 Carbon Dioxide 27 Anion Gap 8.0 BUN 16 Creatinine 0.82 Est Cr Clr Drug Dosing 67.6 Est GFR ( Amer) 84.6 Est GFR (Non-Af Amer) 73.0 BUN/Creatinine Ratio 19.0 Glucose 112 H Calcium 8.7 Magnesium Total Bilirubin AST ALT Alkaline Phosphatase Troponin I C-Reactive Protein Total Protein Albumin Globulin Albumin/Globulin Ratio Lipase Hepatitis C Ab Screen Influenza Type A (PCR) Influenza Type B (PCR) Medications Administered Home Medications amlodipine 5 mg tablet 5 mg PO QAM 08/29/18 [History Confirmed 02/26/19] cholecalciferol (vitamin D3) 1,000 unit capsule 1,000 units PO QAM 08/29/18 [History Confirmed 02/26/19] lutein 20 mg capsule 20 mg PO QAM 08/29/18 [History Confirmed 02/26/19] magnesium oxide 400 mg capsule 400 mg PO QAM cap 08/29/18 [History Confirmed 02/26/19] metoprolol tartrate 25 mg tablet 25 mg PO QAM tab 08/29/18 [History Confirmed 02/26/19] aukpvzve-wwu-hcdbl acid 0.4 mg-lycopene 300 mcg-lutein 250 mcg tablet 1 tab PO QAM 08/29/18 [History Confirmed 02/26/19] tramadol 50 mg tablet 50 mg PO QAM tab 08/29/18 [History Confirmed 02/26/19] triamterene 37.5 mg-hydrochlorothiazide 25 mg tablet 1 tab PO QAM 08/29/18 [History Confirmed 02/26/19] warfarin 7.5 mg tablet See Rx Instructions PO UD 30 Days #30 tab 11/13/18 [Rx Confirmed 02/26/19] calcium carbonate 600 mg calcium (1,500 mg) tablet 1,200 mg PO BID tab 11/21/18 [History Confirmed 02/26/19] psyllium husk 0.4 gram capsule 0.4 gm PO BID cap 11/21/18 [History Confirmed 02/26/19] potassium chloride 20 meq PO TID 02/26/19 [History Confirmed 02/26/19] Active Medications Azithromycin (Zithromax) 250 mg PO DAILY [facility] Stop: 03/06/19 08:59 Last Admin: 02/27/19 08:25 Dose: 250 mg Documented by: Diltiazem HCl 125 mg/ Dextrose 125 mls @ 5 mls/hr IV .Q24H [facility]; Protocol Stop: 03/28/19 15:59 Last Admin: 02/27/19 07:55 Dose: 15 mg/hr, 15 mls/hr Documented by: Ceftriaxone Sodium 1,000 mg/ (Dextrose) 50 mls @ 100 mls/hr IV Q24H [facility]; Protocol Stop: 03/05/19 17:59 Last Admin: 02/26/19 18:41 Dose: Not Given Documented by:
[2019-02-27] MEDS: AZITHROMYCIN 250 MG TAB PO SCH (08:25)
[2019-02-27] MEDS ORDERED: SODIUM CHLORIDE 0.9% 1000ML 1,000 ML IV SCH (11:35)
[2019-02-27] MEDS ORDERED: WARFARIN SOD 1.25 MG TAB PO STA (15:36)
[2019-02-27] MEDS: cefTRIAXone SODIUM 1,000 MG in DEXTROSE 5% 50 ML IV SCH (18:05)
[2019-02-27] MEDS ORDERED: ALBUTEROL 0.083% NEBU SOLN 3 ML VIAL NEB STA (18:42)
[2019-02-27] MEDS ORDERED: METOPROLOL TARTRATE 25 MG TAB PO ONE (18:45)
[2019-02-27] MEDS ORDERED: IPRATROPIUM BROMIDE NEB SOLN 0.02% 2.5 ML VIAL NEB STA (19:06)
[2019-02-27] MEDS: BENZONATATE 100 MG CAPSULE PO PRN (20:14)
[2019-02-28] MEDS: dilTIAZem HCl 125 MG in DEXTROSE 5% 100 ML IV SCH ×3 (00:31→21:19)
[2019-02-28 07:06] LABS: Basophils # (auto) 0.01 K/uL (0-0.2); Basophils % (auto) 0.1 %; Eosinophils # (auto) 0.02 K/uL (0-0.5); Eosinophils % (auto) 0.2 %; Hematocrit (blood only) 41.4 % (37-47); Hemoglobin 14.1 g/dL (12.0-16.0); Immature Granulocytes # (auto) 0.02 K/uL (0.00-0.02); Immature Granulocytes % (auto) 0.2 %; Lymphocytes # (auto) 1.26 K/uL (1.2-3.4); Mean Corpuscular Hgb Conc 34.1 g/dL (32-36); Mean Corpuscular Volume 84.7 fL (80-100); Mean Platelet Volume 10.5 fL (7.4-10.4); Monocytes # (auto) 1.31 K/uL (0.11-0.59); Monocytes % (auto) 12.5 %; Neutrophils # (auto) 7.88 K/uL (1.4-6.5); Platelet Count 179 K/uL (130-400); RDW Coefficient of Variation 14.9 % (11.5-14.5); RDW Standard Deviation 46.3 fL (36.4-46.3); Red Blood Count 4.89 M/uL (4.2-5.4)
[2019-02-28 07:17] LABS: INR 2.3 (0.9-1.1); Prothrombin Time 22.1 Seconds (9.0-12.0)
[2019-02-28 07:41] LABS: BUN Creatinine Ratio 20.3 (10-20); Creatinine Clr Calc Pharmacy 63.2 ml/min; Est GFR (African American) 77.7; Potassium 3.2 mmol/L (3.5-5.1)
[2019-02-28] MEDS ORDERED: POTASSIUM CHLORIDE 20 MEQ TABCR PO STA (07:58)
[2019-02-28] MEDS: AZITHROMYCIN 250 MG TAB PO SCH (08:45)
[2019-02-28] MEDS ORDERED: METOPROLOL TARTRATE 25 MG TAB PO SCH (09:45)
[2019-02-28] MEDS: ALBUT/IPRATROP 3MG/0.5MG NEB 3 ML VIAL NEB SCH ×4 (11:10→23:19)
[2019-02-28] MEDS: BENZONATATE 100 MG CAPSULE PO PRN (14:57)
--- NOTE | 2019-02-28 17:12 | Family Medicine Progress Note ---
Date of Service February 28, 2019 Assessment & Plan (1) Atrial fibrillation: Supervising Physician Co-Signing Physician Notes I personally examined the patient and verified all saldaña points of history and exam, discussed case, and agree with decision making with Dr Delgadillo coughing more, L back hurts around shoulder blade. does hurt in side of chest some w coughing. no furhter chest pressure. HR improving ongoing. vitals noted nad breathing unlabored lungs more clear - no clear rales definitely more clear than before, maybe faintly a question of rales base L. ost - L sided Tspine paraspinals high tone/tender/decreased ROM - inhibitory presssure and direct myofascial - improved. afib/RVR - seems to be provoked by pneumonia. treat underlying cause. improving. work transition to metoprolol and wean dilt gtt CAP - improving. continue zithromax/rocephin, supportive care hypoxia - stable, given variability in lung exam, worse cough, pleuritic pain -> suspect needs more pulmonary toilet from mucous from pneumonia. duonebs Q4hr now that HR can tolerate somatic dysfunction rib region - OMT as above. DVT proph - anticoagulated Subjective Ms. Hobson currently with some right chest and rib pain that wraps around to her back. Denies any SOB or exertional dyspnea currently. Review of Systems Review of Systems: All systems reviewed & are unremarkable except as noted in HPI & below Physical Exam Physical Exam: General: Alert, oriented. No acute distress HEENT: NC/AT, NC in nares Chest: Nontender to palpation. CV: Irregularly irregular rate Resp: Breath sounds decreased but clear bilaterally on back, no increased effort of breathing. Abdomen: Soft, nontender. No guarding. Extremities: No edema appreciated in lower extremities bilaterally. Results & Data Vital Signs (Past 12 Hours) Vital Signs Temp Pulse Pulse Resp BP BP Pulse Ox 02/28/19 16:58 97 H 02/28/19 15:24 102 H 20 97 02/28/19 15:13 36.7 C 100 H 21 123/80 95 02/28/19 12:00 37.3 C 91 H 20 117/80 92 02/28/19 11:11 79 16 97 02/28/19 08:00 110/71 02/28/19 07:50 36.6 C 93 H 94 Laboratory Results Laboratory Results - last 24 hr 02/28/19 02/28/19 02/28/19 06:42 06:42 06:42 WBC 10.50 RBC 4.89 Hgb 14.1 Hct 41.4 MCV 84.7 MCH 28.8 MCHC 34.1 RDW Std Deviation 46.3 RDW Coeff of [place] 14.9 H Plt Count 179 MPV 10.5 H Immature Gran % (Auto) 0.2 Neut % (Auto) 75.0 Lymph % (Auto) 12.0 [place] % (Auto) 12.5 Eos % (Auto) 0.2 Baso % (Auto) 0.1 Immature Gran # (Auto) 0.02 Neut # (Auto) 7.88 H Lymph # (Auto) 1.26 [place] # (Auto) 1.31 H Eos # (Auto) 0.02 Baso # (Auto) 0.01 PT 22.1 H INR 2.3 H Sodium 138 Potassium 3.2 L Chloride 103 Carbon Dioxide 27 Anion Gap 8.0 BUN 18 Creatinine 0.88 Est Cr Clr Drug Dosing 63.2 Est GFR ( Amer) 77.7 Est GFR (Non-Af Amer) 67.0 BUN/Creatinine Ratio 20.3 H Glucose 113 H Calcium 9.0 Medications Administered Home Medications amlodipine 5 mg tablet 5 mg PO QAM 08/29/18 [History Confirmed 02/26/19] cholecalciferol (vitamin D3) 1,000 unit capsule 1,000 units PO QAM 08/29/18 [History Confirmed 02/26/19] lutein 20 mg capsule 20 mg PO QAM 08/29/18 [History Confirmed 02/26/19] magnesium oxide 400 mg capsule 400 mg PO QAM cap 08/29/18 [History Confirmed 02/26/19] metoprolol tartrate 25 mg tablet 25 mg PO QAM tab 08/29/18 [History Confirmed 02/26/19] xutptvhm-sul-jbvfw acid 0.4 mg-lycopene 300 mcg-lutein 250 mcg tablet 1 tab PO QAM 08/29/18 [History Confirmed 02/26/19] tramadol 50 mg tablet 50 mg PO QAM tab 08/29/18 [History Confirmed 02/26/19] triamterene 37.5 mg-hydrochlorothiazide 25 mg tablet 1 tab PO QAM 08/29/18 [History Confirmed 02/26/19] warfarin 7.5 mg tablet See Rx Instructions PO UD 30 Days #30 tab 11/13/18 [Rx Confirmed 02/26/19] calcium carbonate 600 mg calcium (1,500 mg) tablet 1,200 mg PO BID tab 11/21/18 [History Confirmed 02/26/19] psyllium husk 0.4 gram capsule 0.4 gm PO BID cap 11/21/18 [History Confirmed 02/26/19] potassium chloride 20 meq PO TID 02/26/19 [History Confirmed 02/26/19] Active Medications Acetaminophen (Tylenol) 1,000 mg PO Q6H PRN PRN Reason: Pain Stop: 03/30/19 17:05 Albuterol (Duoneb) 3 ml NEB Q4R [facility] Stop: 03/30/19 11:59 Last Admin: 02/28/19 15:20 Dose: 3 ml Documented by: Azithromycin (Zithromax) 250 mg PO DAILY [facility] Stop: 03/06/19 08:59 Last Admin: 02/28/19 08:45 Dose: 250 mg Documented by: Benzonatate (Tessalon Perle) 100 mg PO TID PRN PRN Reason: Cough Stop: 03/29/19 18:39 Last Admin: 02/28/19 14:57 Dose: 100 mg Documented by: Diltiazem HCl 125 mg/ Dextrose 125 mls @ 15 mls/hr IV .[id number] [facility]; Protocol Stop: 03/28/19 15:59 Last Titration: 02/28/19 15:26 Dose: 7.5 mg/hr, 7.5 mls/hr Documented by: Ceftriaxone Sodium 1,000 mg/ (Dextrose) 50 mls @ 100 mls/hr IV Q24H [facility]; Protocol Stop: 03/05/19 17:59 Last Infusion: 02/27/19 18:40 Dose: Infused Documented by: Metoprolol Tartrate (Lopressor) 12.5 mg PO QAM [facility] Stop: 03/30/19 09:44 Last Admin: 02/28/19 10:17 Dose: 12.5 mg Documented by: Metoprolol Tartrate (Lopressor) 25 mg PO ONE ONE Stop: 02/28/19 17:06 Warfarin Sodium (Coumadin) 7.5 mg PO [id number]@1600 [facility] Stop: 03/30/19 15:59 Warfarin Sodium (Coumadin) 3.75 mg PO TuThSa@1600 [facility] Stop: 03/31/19 15:59
[2019-02-28] MEDS: WARFARIN SOD 7.5 MG TAB PO SCH (17:19)
[2019-02-28] MEDS ORDERED: ACETAMINOPHEN 500 MG TAB ONE (17:31)
[2019-02-28] MEDS: ACETAMINOPHEN 500 MG TAB PO PRN ×2 (17:38→23:59)
[2019-02-28] MEDS ORDERED: METOPROLOL TARTRATE 25 MG TAB PO ONE (17:45)
[2019-02-28] MEDS: cefTRIAXone SODIUM 1,000 MG in DEXTROSE 5% 50 ML IV SCH (18:26)
[2019-02-28] MEDS ORDERED: METOPROLOL SUCC 25MG EXT REL TAB PO SCH (21:00)
[2019-03-01] MEDS: ALBUT/IPRATROP 3MG/0.5MG NEB 3 ML VIAL NEB SCH ×5 (03:21→19:13)
[2019-03-01 06:10] LABS: Basophils # (auto) 0.02 K/uL (0-0.2); Basophils % (auto) 0.2 %; Eosinophils # (auto) 0.04 K/uL (0-0.5); Eosinophils % (auto) 0.4 %; Hematocrit (blood only) 41.3 % (37-47); Hemoglobin 13.8 g/dL (12.0-16.0); Immature Granulocytes # (auto) 0.04 K/uL (0.00-0.02); Immature Granulocytes % (auto) 0.4 %; Lymphocytes # (auto) 1.34 K/uL (1.2-3.4); Lymphocytes % (auto) 12.7 %; Mean Corpuscular Hgb Conc 33.4 g/dL (32-36); Mean Corpuscular Volume 85.2 fL (80-100); Mean Platelet Volume 10.9 fL (7.4-10.4); Monocytes % (auto) 13.3 %; Neutrophils # (auto) 7.71 K/uL (1.4-6.5); Platelet Count 195 K/uL (130-400); RDW Coefficient of Variation 14.8 % (11.5-14.5); RDW Standard Deviation 46.3 fL (36.4-46.3); Red Blood Count 4.85 M/uL (4.2-5.4); White Blood Count 10.55 K/uL (4.8-10.8)
[2019-03-01 06:34] LABS: INR 3.1 (0.9-1.1); Prothrombin Time 29.1 Seconds (9.0-12.0)
[2019-03-01 06:40] LABS: Calcium 8.7 mg/dl (8.5-10.1); Creatinine Clr Calc Pharmacy 67.2 ml/min; Est GFR (African American) 83.4; Est GFR (Non-African American) 71.9; Potassium 3.6 mmol/L (3.5-5.1)
--- NOTE | 2019-03-01 07:37 | Family Medicine Progress Note ---
Date of Service March 01, 2019 Assessment & Plan (1) Atrial fibrillation: Ms. Hobson is a 68yo with history of atrial fibrillation controlled at home with metoprolol tartrate 25mg and anticoagulated with warfarin. She was sent over by her PCP after being found to be in a fib with rvr with HR in the 140s. Atrial Fibrillation with RVR -Pt in a fib and converted at times to atrial flutter overnight per tele monitoring. -Started on Metoprolol Succinate 50mg PO BID today for rate control. -Also loading with Digoxin today given the a flutter. Will assess effect later today to determine if switch to amiodarone for rhythm control will be needed. -Will continue to wean off of diltiazem drip -This episode of rvr likely set off by pt's URI/pneumonia symptoms. -Symptomatically improving however crackles at bases this morning. Component of pneumonia and some ?diastolic failure and backing up of fluid. -Chest XR ordered to assess extent of pulm edema vs. pneumonia effect. -Showed progressive pulm congestion and stable basilar opacities. -Given one time dose of IV Lasix 20mg. Pt states symptomatically better. -Continuing home warfarin but dose held today for INR of 3.1 -Will continue to monitor Pneumonia -Pt symptomatically improving in terms of hypoxia. -Down to 2 L today from 5L max -Continue scheduled albuterol nebs -Added flutter valve and pulm toileting. -Likely community acquired pneumonia -Currently being treated with Azithromycin and Rocephin. -Can switch to PO cefdinir -Continue O2 supplementation. Hypoxia -Improving down to 2L from 5L max. -Continue O2 supplementation -Likely secondary to pneumonia but cardiac cause cannot be ruled out currently. -Will continue to monitor HTN -Currently Normotensive -Continue to hold home amlodipine and diuretic. -On metoprolol succ for a fib rate control with weaning diltiazem drip. DVT Prophylaxis: On warfarin for a fib anticoagulation FEN: Heart healthy Dispo: home once afib rate controlled, hypoxia resolved. Supervising Physician Co-Signing Physician Notes I personally examined the patient and verified all salda[place] points of history and exam, discussed case, and agree with decision making with Dr Delgadillo Generally feeling better. Oxygen requirements are decreasing, but heart rates have sped back up again. On review of monitor strips, unfortunately she is flipped over into a flutter and that appears to be the reason her rates have gotten worse. vitals noted nad breathing unlabored cardio shows heart rates of 110-120 with flutter waves. Neuro shows cranial nerves II through XII are grossly intact gross motor and sensory intact. afib/RVR - seems to be provoked by pneumonia. treat underlying cause. Rates worsened, this probably due to going over to a flutter. Discussed with patient this is sometimes a bit harder to rate control and sometimes does require rhythm controlling methods. That said her overall improvement and being fairly asymptomatic with her current rates makes attempts at med management quite reasonable. We discussed risks and benefits of multiple approaches and in addition to the diltiazem and metoprolol, we will add digoxin. She has been anticoagulated reliably for quite a while so if rhythm control methods are needed the risk would be fairly low. Hopefully her rates will improve with above measures. CAP - improving. continue zithromax/rocephin, supportive care hypoxia -improving. Seems to have related to both the pneumonia and a degree of diastolic rate related to pulmonary edema from her A. fib. This is improved with 1 dose of Lasix. Continue nebulizers for pulmonary toilet as well. DVT proph - anticoagulated Subjective Ms. Hobson states she feels better this morning. The tylenol has been helping her rib pain, OMT maneuvers helped with the back pain. Breathing much improved, down to 2L NC from max of 5L this AM. Denies headache, chest pain, subjective palpitations. Review of Systems Review of Systems: All systems reviewed & are unremarkable except as noted in HPI & below Physical Exam Physical Exam: General: Alert, oriented. No acute distress. Sitting in chair at bedside. HEENT: NC/AT, NC in nares Chest: Nontender to palpation. CV: Irregularly irregular rate Resp: Fine crackles heard at the bases bilaterally, no increased effort of breathing. Abdomen: Soft, nontender. No guarding. Extremities: No edema appreciated in lower extremities bilaterally. Results & Data Vital Signs (Past 12 Hours) Vital Signs Temp Pulse Resp BP BP Pulse Ox 03/01/19 06:52 36.6 C 98 H 18 113/74 93 03/01/19 03:56 36.4 C L 108 H 18 126/86 91 03/01/19 03:22 77 16 93 03/01/19 01:01 87 04/19/19 23:19 114 H 16 96 02/28/19 22:58 36.9 C 101 H 18 123/84 94 02/28/19 19:40 75 16 96 02/28/19 19:18 36.6 C 85 19 105/72 94 Laboratory Results Laboratory Results - last 24 hr 02/28/19 03/01/19 03/01/19 06:42 05:31 05:31 WBC 10.55 RBC 4.85 Hgb 13.8 Hct 41.3 MCV 85.2 MCH 28.5 MCHC 33.4 RDW Std Deviation 46.3 RDW Coeff of [place] 14.8 H Plt Count 195 MPV 10.9 H Immature Gran % (Auto) 0.4 Neut % (Auto) 73.0 Lymph % (Auto) 12.7 [place] % (Auto) 13.3 Eos % (Auto) 0.4 Baso % (Auto) 0.2 Immature Gran # (Auto) 0.04 H Neut # (Auto) 7.71 H Lymph # (Auto) 1.34 [place] # (Auto) 1.40 H Eos # (Auto) 0.04 Baso # (Auto) 0.02 PT INR Sodium 138 138 Potassium 3.2 L 3.6 Chloride 103 106 Carbon Dioxide 27 29 Anion Gap 8.0 3.0 BUN 18 15 Creatinine 0.88 0.83 Est Cr Clr Drug Dosing 63.2 67.2 Est GFR ( Amer) 77.7 83.4 Est GFR (Non-Af Amer) 67.0 71.9 BUN/Creatinine Ratio 20.3 H 18.0 Glucose 113 H 113 H Calcium 9.0 8.7 03/01/19 05:31 WBC RBC Hgb Hct MCV MCH MCHC RDW Std Deviation RDW Coeff of [place] Plt Count MPV Immature Gran % (Auto) Neut % (Auto) Lymph % (Auto) [place] % (Auto) Eos % (Auto) Baso % (Auto) Immature Gran # (Auto) Neut # (Auto) Lymph # (Auto) [place] # (Auto) Eos # (Auto) Baso # (Auto) PT 29.1 H INR 3.1 H Sodium Potassium Chloride Carbon Dioxide Anion Gap BUN Creatinine Est Cr Clr Drug Dosing Est GFR ( Amer) Est GFR (Non-Af Amer) BUN/Creatinine Ratio Glucose Calcium Medications Administered Home Medications amlodipine 5 mg tablet 5 mg PO QAM 08/29/18 [History Confirmed 02/26/19] cholecalciferol (vitamin D3) 1,000 unit capsule 1,000 units PO QAM 08/29/18 [History Confirmed 02/26/19] lutein 20 mg capsule 20 mg PO QAM 08/29/18 [History Confirmed 02/26/19] magnesium oxide 400 mg capsule 400 mg PO QAM cap 08/29/18 [History Confirmed 02/26/19] metoprolol tartrate 25 mg tablet 25 mg PO QAM tab 08/29/18 [History Confirmed 02/26/19] odviifxr-jsm-rjjrk acid 0.4 mg-lycopene 300 mcg-lutein 250 mcg tablet 1 tab PO QAM 08/29/18 [History Confirmed 02/26/19] tramadol 50 mg tablet 50 mg PO QAM tab 08/29/18 [History Confirmed 02/26/19] triamterene 37.5 mg-hydrochlorothiazide 25 mg tablet 1 tab PO QAM 08/29/18 [History Confirmed 02/26/19] warfarin 7.5 mg tablet See Rx Instructions PO UD 30 Days #30 tab 11/13/18 [Rx Confirmed 02/26/19] calcium carbonate 600 mg calcium (1,500 mg) tablet 1,200 mg PO BID tab 11/21/18 [History Confirmed 02/26/19] psyllium husk 0.4 gram capsule 0.4 gm PO BID cap 11/21/18 [History Confirmed 02/26/19] potassium chloride 20 meq PO TID 02/26/19 [History Confirmed 02/26/19] Active Medications Acetaminophen (Tylenol) 1,000 mg PO Q6H PRN PRN Reason: Pain Stop: 03/30/19 17:05 Last Admin: 02/28/19 23:59 Dose: 1,000 mg Documented by: Albuterol (Duoneb) 3 ml NEB Q4R [facility] Stop: 03/30/19 11:59 Last Admin: 03/01/19 07:03 Dose: 3 ml Documented by: Azithromycin (Zithromax) 250 mg PO DAILY [facility] Stop: 03/06/19 08:59 Last Admin: 02/28/19 08:45 Dose: 250 mg Documented by: Benzonatate (Tessalon Perle) 100 mg PO TID PRN PRN Reason: Cough Stop: 03/29/19 18:39 Last Admin: 02/28/19 14:57 Dose: 100 mg Documented by: Diltiazem HCl 125 mg/ Dextrose 125 mls @ 7.5 mls/hr IV .[id number] [facility]; Protocol Stop: 03/28/19 15:59 Last Titration: 03/01/19 07:02 Dose: 7.5 mg/hr, 7.5 mls/hr Documented by: Ceftriaxone Sodium 1,000 mg/ (Dextrose) 50 mls @ 100 mls/hr IV Q24H [facility]; Protocol Stop: 03/05/19 17:59 Last Infusion: 02/28/19 18:59 Dose: Infused Documented by: Metoprolol Succinate (Toprol Xl) 50 mg PO BID [facility] Stop: 03/31/19 07:44 Warfarin Sodium (Coumadin) 7.5 mg PO [id number]@1600 [facility] Stop: 03/30/19 15:59 Last Admin: 02/28/19 17:19 Dose: 7.5 mg Documented by: Warfarin Sodium (Coumadin) 3.75 mg PO TuThSa@1600 [facility] Stop: 03/31/19 15:59 Resident Activity Tracking Resident Involvement: Resident Care Provided Care Provided: Adult Hospital Medicine
--- NOTE | 2019-03-01 07:54 | XRay Report ---
XR chest 1V portable CLINICAL HISTORY: Pneumonia. Suspected pulmonary edema. COMPARISON STUDY: 02/26/2019 FINDINGS: The heart is enlarged. There is aortic tortuosity/ectasia. Mild pulmonary vascular congesti on is suspected. There is worsening left lower lobe atelectasis/consolidation. There are persistent r ight basilar airspace opacities.[ IMPRESSION: 1. Cardiomegaly and worsening left lower lobe atelectasis/consolidation 2. Stable right basilar opacities 3. Suspected mild pulmonary vascular congestion Electronically signed by: Sean Adams M.D. 03/01/2019 7:53 AM
[2019-03-01] MEDS: METOPROLOL SUCC 50MG EXT REL TAB PO SCH ×2 (08:34→20:59)
[2019-03-01] MEDS: AZITHROMYCIN 250 MG TAB PO SCH (08:35)
[2019-03-01] MEDS ORDERED: FUROSEMIDE 20 MG in SYRINGE 0 ML IV SCH (08:45)
[2019-03-01] MEDS ORDERED: DIGOXIN 500 MCG/2 ML AMP IV ONE (12:59)
[2019-03-01] MEDS ORDERED: WARFARIN SOD 1.25 MG TAB PO SCH (16:00)
[2019-03-01] MEDS ORDERED: METOPROLOL TARTRATE 25 MG TAB PO ONE (17:04)
[2019-03-01] MEDS: cefTRIAXone SODIUM 1,000 MG in DEXTROSE 5% 50 ML IV SCH (17:14)
[2019-03-01] MEDS ORDERED: DIGOXIN IV SCH (20:00)
[2019-03-01] MEDS ORDERED: DIGOXIN 500 MCG/2 ML AMP IV SCH (20:00)
[2019-03-01] MEDS: dilTIAZem HCl 125 MG in DEXTROSE 5% 100 ML IV SCH (20:59)
[2019-03-02] MEDS ORDERED: DIGOXIN 500 MCG/2 ML AMP IV SCH (02:00)
[2019-03-02] MEDS ORDERED: DIGOXIN IV SCH (02:00)
[2019-03-02 06:13] LABS: Basophils # (auto) 0.02 K/uL (0-0.2); Basophils % (auto) 0.2 %; Eosinophils # (auto) 0.06 K/uL (0-0.5); Eosinophils % (auto) 0.7 %; Hematocrit (blood only) 40.2 % (37-47); Hemoglobin 13.7 g/dL (12.0-16.0); Immature Granulocytes # (auto) 0.02 K/uL (0.00-0.02); Immature Granulocytes % (auto) 0.2 %; Lymphocytes # (auto) 1.54 K/uL (1.2-3.4); Lymphocytes % (auto) 17.3 %; Mean Corpuscular Hgb Conc 34.1 g/dL (32-36); Mean Corpuscular Volume 83.4 fL (80-100); Mean Platelet Volume 10.5 fL (7.4-10.4); Monocytes # (auto) 1.24 K/uL (0.11-0.59); Monocytes % (auto) 13.9 %; Neutrophils # (auto) 6.04 K/uL (1.4-6.5); Neutrophils % (auto) 67.7 %; Platelet Count 216 K/uL (130-400); RDW Coefficient of Variation 14.6 % (11.5-14.5); RDW Standard Deviation 44.6 fL (36.4-46.3); Red Blood Count 4.82 M/uL (4.2-5.4); White Blood Count 8.92 K/uL (4.8-10.8)
[2019-03-02] MEDS: dilTIAZem HCl 125 MG in DEXTROSE 5% 100 ML IV SCH ×3 (06:24→21:36)
[2019-03-02 06:41] LABS: Prothrombin Time 28.3 Seconds (9.0-12.0)
[2019-03-02 06:51] LABS: BUN Creatinine Ratio 20.4 (10-20); Calcium 8.8 mg/dl (8.5-10.1); Creatinine Clr Calc Pharmacy 72.4 ml/min; Est GFR (African American) 91.3; Est GFR (Non-African American) 78.8; Potassium 3.6 mmol/L (3.5-5.1)
[2019-03-02] MEDS: ALBUT/IPRATROP 3MG/0.5MG NEB 3 ML VIAL NEB SCH ×4 (07:02→19:05)
[2019-03-02] MEDS: AZITHROMYCIN 250 MG TAB PO SCH (07:53)
[2019-03-02] MEDS: METOPROLOL SUCC 50MG EXT REL TAB PO SCH ×2 (07:53→20:19)
--- NOTE | 2019-03-02 08:54 | Family Medicine Progress Note ---
Date of Service March 02, 2019 Assessment & Plan (1) Atrial fibrillation: Ms. Hobson is a 68yo with history of atrial fibrillation controlled at home with metoprolol tartrate 25mg and anticoagulated with warfarin. She was sent over by her PCP after being found to be in a fib with rvr with HR in the 140s. Atrial Fibrillation with RVR -Pt still in a fib and atrial flutter overnight again per tele monitoring. -Excellent rate control this AM but rhythm still not converted. -Continue Metoprolol Succinate 50mg PO BID today for rate control. -Wean off the diltiazem drip (drip stopped this AM). -S/p three doses of digoxin (loading + additional two) -This a fib with rvr and atrial flutter likely set off by pt's URI/pneumonia symptoms. -Symptomatically improving -Continuing home warfarin but dose held today again for INR of 3.0 -Will continue to monitor Pneumonia -Pt symptomatically improving in terms of hypoxia. -Up to 3L today from 2L yesterday. -Continue scheduled albuterol nebs EVEN DURING SLEEP as pt had increased O2 need this morning after not receiving treatments overnight. -Added flutter valve and pulm toileting. -incentive spirometry and active pulse ox -Likely community acquired pneumonia -Currently being treated with Azithromycin and Rocephin. -Can consider switch to PO cefdinir later -Continue O2 supplementation. Hypoxia -Improving but back up to 3L. -Continue O2 supplementation -Likely secondary to pneumonia but cardiac cause cannot be ruled out currently. -Will continue to monitor HTN -Currently Normotensive -Continue to hold home amlodipine and diuretic. -On metoprolol succ for a fib rate control with weaning diltiazem drip. DVT Prophylaxis: On warfarin for a fib anticoagulation FEN: Heart healthy Dispo: home once afib rate controlled, increased oxygen need resolved. Supervising Physician Co-Signing Physician Notes I personally examined the patient and verified all saldaña points of history and exam, discussed case, and agree with decision making with Dr Delgadillo Generally feeling better. Off of oxygen at rest were recommended the room. She is 95% on room air at rest. We ambulate a lap around the hallway, she appears to not really have any significant dyspnea, however unfortunately 1 of her get back to the room she is 85-86% on room air and then starts to have a degree of labored breathing although this quickly improves with rest. vitals noted nad breathing unlabored heart rate irregularly irregular but now rate controlled. (She did get into the 1 teens with ambulation, but this improved fairly quickly with rest to) lungs show a degree of faint Rales on the right side and a bit diminished at the left base. No accessory muscle use. Skin shows no rashes no pallor or icterus. afib/RVR - seems to be provoked by pneumonia. treating underlying cause. She had a worsening of rate related to flipping over in atrial flutter. Fortunately this actually improved quite nicely with the addition of digoxin. Currently she is only on metoprolol no Cardizem, no digoxin. Given that her rates are improving, and the worsening was more than likely provoked by the pneumonia (which is now resolving) we will follow her closely and adjust the metoprolol, with the hope that we can discharge her just on an escalated dose of metoprolol not multiple medications. That said given the improvement with the digoxin, if her heart rate were to start to escalate again we would resume the digoxin. She is chronically anticoagulated. CAP - improving. continue zithromax/rocephin, supportive care. By her symptoms and lung exam it seems like she is more or less passed the catarrhal phase of this pneumonia. hypoxia -improving. This is been multifactorial. Initially related to the pneumonia, later related to a bit of rate related diastolic CHF. Currently she has improving hypoxia, but she desaturated significantly and symptomatically with ambulation. Her lung exam fits the most with pulmonary edema being the culprit, will give her additional Lasix, in the hopes that we can wean her off of oxygen at all times in preparation for discharge. DVT proph - anticoagulated Dispositionthe plan is to get her home, as soon as she is able to ambulate on room air without desaturation. Hopefully with the additional dose of Lasix today that may be as soon as tomorrow. Subjective Ms. Hobson states she's feeling well this morning. Symptoms much improved. Did NOT receive albuterol treatments overnight cause they were a bit disruptive to her sleep at night. Increased O2 need of 3L this morning however. Review of Systems Review of Systems: All systems reviewed & are unremarkable except as noted in HPI & below Physical Exam Physical Exam: General: Alert, oriented. No acute distress. Sitting in chair at bedside. HEENT: NC/AT, NC in nares Chest: Nontender to palpation. CV: Irregularly irregular rate Resp: Lungs clear to auscultation bilaterally this morning, no increased effort of breathing. Abdomen: Soft, nontender. No guarding. Extremities: 1+ pitting edema in lower extremities bilaterally. Results & Data Vital Signs (Past 12 Hours) Vital Signs Temp Pulse Pulse Resp BP Pulse Ox 03/02/19 07:06 36.7 C 75 19 102/70 94 03/02/19 07:02 79 16 94 03/02/19 03:35 36.9 C 80 22 119/71 93 03/02/19 02:02 102 H 03/01/19 23:19 36.7 C 94 H 20 121/88 93 03/01/19 21:00 103 H Laboratory Results Laboratory Results - last 24 hr 03/02/19 03/02/19 03/02/19 05:34 05:34 05:34 WBC 8.92 RBC 4.82 Hgb 13.7 Hct 40.2 MCV 83.4 MCH 28.4 MCHC 34.1 RDW Std Deviation 44.6 RDW Coeff of [place] 14.6 H Plt Count 216 MPV 10.5 H Immature Gran % (Auto) 0.2 Neut % (Auto) 67.7 Lymph % (Auto) 17.3 [place] % (Auto) 13.9 Eos % (Auto) 0.7 Baso % (Auto) 0.2 Immature Gran # (Auto) 0.02 Neut # (Auto) 6.04 Lymph # (Auto) 1.54 [place] # (Auto) 1.24 H Eos # (Auto) 0.06 Baso # (Auto) 0.02 PT 28.3 H INR 3.0 H Sodium 139 Potassium 3.6 Chloride 106 Carbon Dioxide 26 Anion Gap 8.0 BUN 16 Creatinine 0.77 Est Cr Clr Drug Dosing 72.4 Est GFR ( Amer) 91.3 Est GFR (Non-Af Amer) 78.8 BUN/Creatinine Ratio 20.4 H Glucose 101 H Calcium 8.8 Medications Administered Home Medications amlodipine 5 mg tablet 5 mg PO QA 08/29/18 [History Confirmed 02/26/19] cholecalciferol (vitamin D3) 1,000 unit capsule 1,000 units PO QAM 08/29/18 [History Confirmed 02/26/19] lutein 20 mg capsule 20 mg PO QAM 08/29/18 [History Confirmed 02/26/19] magnesium oxide 400 mg capsule 400 mg PO QAM cap 08/29/18 [History Confirmed 02/26/19] metoprolol tartrate 25 mg tablet 25 mg PO QAM tab 08/29/18 [History Confirmed 02/26/19] ejcrabwh-hrv-zveig acid 0.4 mg-lycopene 300 mcg-lutein 250 mcg tablet 1 tab PO QAM 08/29/18 [History Confirmed 02/26/19] tramadol 50 mg tablet 50 mg PO QAM tab 08/29/18 [History Confirmed 02/26/19] triamterene 37.5 mg-hydrochlorothiazide 25 mg tablet 1 tab PO QAM 08/29/18 [History Confirmed 02/26/19] warfarin 7.5 mg tablet See Rx Instructions PO UD 30 Days #30 tab 11/13/18 [Rx Confirmed 02/26/19] calcium carbonate 600 mg calcium (1,500 mg) tablet 1,200 mg PO BID tab 11/21/18 [History Confirmed 02/26/19] psyllium husk 0.4 gram capsule 0.4 gm PO BID cap 11/21/18 [History Confirmed 02/26/19] potassium chloride 20 meq PO TID 02/26/19 [History Confirmed 02/26/19] Active Medications Acetaminophen (Tylenol) 1,000 mg PO Q6H PRN PRN Reason: Pain Stop: 03/30/19 17:05 Last Admin: 02/28/19 23:59 Dose: 1,000 mg Documented by: Albuterol (Duoneb) 3 ml NEB Q4HWA MARILY Stop: 03/30/19 11:59 Last Admin: 03/02/19 07:02 Dose: 3 ml Documented by: Azithromycin (Zithromax) 250 mg PO DAILY MARILY Stop: 03/06/19 08:59 Last Admin: 03/02/19 07:53 Dose: 250 mg Documented by: Benzonatate (Tessalon Perle) 100 mg PO TID PRN PRN Reason: Cough Stop: 03/29/19 18:39 Last Admin: 02/28/19 14:57 Dose: 100 mg Documented by: Diltiazem HCl 125 mg/ Dextrose 125 mls @ 15 mls/hr IV .Q8H20M [facility]; Protocol Stop: 03/28/19 15:59 Last Admin: 03/02/19 06:24 Dose: 10 mg/hr, 10 mls/hr Documented by: Ceftriaxone Sodium 1,000 mg/ (Dextrose) 50 mls @ 100 mls/hr IV Q24H [facility]; Protocol Stop: 03/05/19 17:59 Last Infusion: 03/01/19 18:49 Dose: Infused Documented by: Metoprolol Succinate (Toprol Xl) 50 mg PO BID [facility] Stop: 03/31/19 07:44 Last Admin: 03/02/19 07:53 Dose: 50 mg Documented by: Warfarin Sodium (Coumadin) 7.5 mg PO [id number] [facility] Stop: 03/30/19 15:59 Last Admin: 02/28/19 17:19 Dose: 7.5 mg Documented by: Warfarin Sodium (Coumadin) 3.75 mg PO [email or web address] [facility] Stop: 03/31/19 15:59
[2019-03-02] MEDS ORDERED: FUROSEMIDE 20 MG in SYRINGE 0 ML IV ONE (16:00)
[2019-03-02] MEDS: ACETAMINOPHEN 500 MG TAB PO PRN (16:14)
[2019-03-02] MEDS: cefTRIAXone SODIUM 1,000 MG in DEXTROSE 5% 50 ML IV SCH (17:17)
[2019-03-03 06:19] LABS: INR 2.3 (0.9-1.1); Prothrombin Time 22.2 Seconds (9.0-12.0)
[2019-03-03 06:21] LABS: Basophils # (auto) 0.03 K/uL (0-0.2); Basophils % (auto) 0.5 %; Eosinophils # (auto) 0.11 K/uL (0-0.5); Eosinophils % (auto) 1.7 %; Hematocrit (blood only) 40.8 % (37-47); Hemoglobin 13.7 g/dL (12.0-16.0); Immature Granulocytes # (auto) 0.01 K/uL (0.00-0.02); Immature Granulocytes % (auto) 0.2 %; Lymphocytes # (auto) 1.58 K/uL (1.2-3.4); Lymphocytes % (auto) 24.7 %; Mean Corpuscular Hgb Conc 33.6 g/dL (32-36); Mean Corpuscular Volume 83.6 fL (80-100); Mean Platelet Volume 10.8 fL (7.4-10.4); Monocytes # (auto) 0.91 K/uL (0.11-0.59); Monocytes % (auto) 14.2 %; Neutrophils # (auto) 3.75 K/uL (1.4-6.5); Neutrophils % (auto) 58.7 %; Platelet Count 230 K/uL (130-400); RDW Coefficient of Variation 14.5 % (11.5-14.5); RDW Standard Deviation 44.7 fL (36.4-46.3); Red Blood Count 4.88 M/uL (4.2-5.4); White Blood Count 6.39 K/uL (4.8-10.8)
[2019-03-03 06:38] LABS: BUN Creatinine Ratio 19.1 (10-20); Calcium 8.5 mg/dl (8.5-10.1); Creatinine Clr Calc Pharmacy 75.1 ml/min; Est GFR (African American) 95.8; Est GFR (Non-African American) 82.7; Potassium 3.3 mmol/L (3.5-5.1)
[2019-03-03] MEDS: ALBUT/IPRATROP 3MG/0.5MG NEB 3 ML VIAL NEB SCH ×3 (07:09→15:11)
[2019-03-03] MEDS ORDERED: POTASSIUM CHLORIDE 20 MEQ TABCR PO STA ×2 (08:04→14:39)
[2019-03-03] MEDS: AZITHROMYCIN 250 MG TAB PO SCH (08:17)
[2019-03-03] MEDS: METOPROLOL SUCC 50MG EXT REL TAB PO SCH (08:17)
[2019-03-03] MEDS: ACETAMINOPHEN 500 MG TAB PO PRN (08:20)
[2019-03-03] MEDS: dilTIAZem HCl 125 MG in DEXTROSE 5% 100 ML IV SCH (11:44)
--- NOTE | 2019-03-03 14:44 | Discharge Summary ---
Date of Service March 03, 2019 Admission HPI Per Admitting Provider Patient is a very pleasant 68-year-old female, she notes she has been feeling sick for about 2 weeks with respiratory symptoms and sinus drainage. She has had a cough that is ongoing. She reported in her PCPs office that she felt feverish this morning. She denies any true fevers chills or sweats to me. She notes that she woke up about 1:30 in the morning with tightness or pressure in her chest. It was not going away so she went to see her, there she was found to be tachycardic and so an EKG was checked. She was found to be in A. fib with RVR with a heart rate of about 140, because of this she was sent to the ER for further evaluation. Here she was started on a diltiazem drip her heart rates have slowed and her chest pressure is lightened quite significantly. Is not a 0, but is much better than before. For all of this she denies any chest pain pressure or tightness with any activity or at rest. Is really the first she can recall ever feeling such as sensation. She notes that she also cannot recall ever having A. fib and RVR before. She denies any preceding fatigue or new or worse exercise intolerance. Admission Exam (Per Admitting) Constitutional In general she is awake alert oriented x3 pleasant but fatigued no distress. HEENT normal cephalic atraumatic face is flushed mucous members are moist. Neck shows full range of motion. Cardio is irregularly irregular tachycardic, no rubs murmurs or gallops. Lungs show bibasilar rales no other rhonchi or wheezes, no accessory muscle use good effort. Abdomen is soft nondistended nontender no masses or organomegaly Extremities show no cyanosis clubbing or edema, her anterior shins show a little bit of a petechial type pattern rash that does not adi, patient notes this is chronic. Skin other than above she has no other rashes, pallor, or icterus. Neuro shows cranial nerves II through XII be grossly intact gross motor and sensory intact. Mental status shows good recent and remote recall normal mood and affect good judgment and insight Discharge Data Consultations 02/26/19 17:06 ED Decision to Admit Stat Hospital Course (1) Atrial fibrillation: Ms. Hobson is a 68yo with history of atrial fibrillation controlled at home with metoprolol tartrate 25mg and anticoagulated with warfarin. She was sent over by her PCP after being found to be in a fib with rvr with HR in the 140s. Atrial Fibrillation with RVR -Pt has been in persistent afib throughout hospitalization, rate controlled on D/C. a fib with rvr and atrial flutter likely set off by pt's URI/pneumonia symptoms. Responded well to dilt/dig. Increased home metoprolol to 100 mg BID -Pt was on dilt drip dc'd 03/02 -S/p 3 doses of dig -pt was dc'd on -dc'd Metoprolol Succinate 100mg PO BID today for rate control. -Continue Home Warfarin dosing, INR Therapeutic on DC 2.3 Pneumonia Patient presented with acute hypoxemic respiratory distress requiring 3 L of oxygen she was subsequently diagnosed with a pneumonia. Oxygen was titrated throughout her stay to sats greater than 92%. She received albuterol as needed. Presumed Community acquired pneumonia treated with IV azithromycin and Ro cephin. Will DC on 5-day course of cefdinar Hypoxia Resolved currently satting well on room air. Passed 2-step today Stable for discharge HTN Remained normotensive throughout the duration of hospital stay. Discharge on 100 mg of metoprolol XL BID Start amlodipine per PCPs recommendation DVT Prophylaxis: On warfarin for a fib anticoagulation Discharge Instructions Care instructions: You were admitted to [facility] for treatment of Pneumonia and Atrial Fibrillation with rapid ventricular response. A discharge summary will be sent to your primary care physician to ensure continuity of care. Please bring this discharge summary with you to your next office appointment so that your provider can review it at that time. Follow-up appointments: - Keep all your follow-up appointments as already scheduled. If you cannot make an appointment, notify your provider. - Please call to request a follow-up appointment with your primary care physician within one week of discharge. Please let us know if you are unable to obtain an appointment Follow-up labs: - Please go to a lab nearest you and obtain the requested lab work. Please have this completed at least 3 hours before your [email or web address]\[id number] appointment (or the day before your appointment if possible). Medications: - Your medication list has been reviewed and reconciled upon discharge to ensure accuracy and continuity of care. - You are provided with a list of all your current medications at this time. Please review this list closely and make note of any changes. - Please take all of your medications exactly as prescribed. - Tell your primary care provider if you cannot afford your medications. - Call your primary care provider if you are having any side effects or any other problems. - Call your primary care provider before taking any over the counter medications or supplements, including herbals and vitamins, because some of these may interact with your current medications and/or make your symptoms worse. Symptoms: Please call your primary care provider for symptoms including, but not limited to: fevers (temperatures greater than 100.4), chills, intractable nausea or vomiting, diarrhea, rash, shortness of breath, bleeding, pain, or if you experience any worsening of the symptoms that brought you to the hospital. For EMERGENCY and VERY SERIOUS health-related issues, such as chest pain, shortness of breath, or sudden onset of the symptoms that brought you to the hospital, you may need to call 911 or go directly to the Emergency Room It has been our privilege to take care of you during your hospital stay. And Above All Else Fell Better! Best Wishes, Eder Cramer MD PGY1 Resident, Family & Community Medicine [facility] Residency at [facility] [place] [address], [address] : [address] [place] [address] Resident Activity Tracking Resident Involvement: Resident Care Provided Care Provided: Adult Hospital Medicine
[2019-03-03] MEDS: WARFARIN SOD 7.5 MG TAB PO SCH (16:31)
--- NOTE | 2019-03-06 06:49 | Coding Query ---
CONGESTIVE HEART FAILURE To Promote full compliance with coding requirements relating to patient care, physician participation is requested in all cases of nail galvanizer uncertainty. Please assist us with the following questions. A diagnosis of Congestive Heart Failure is documented in the patient's medical record. To accurately code this diagnosis and to compare patient severity, we ask that you specify the type of heart failure by placing an X within the parenthesis (x). Thanks for your help! 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 Please check the appropriate box: ( ) Present on Admission ( x) Not Present On Admission ( ) Clinically undetermined was acute diastolic chf related to afib/RVR causing rate related failure in filling time. MTDD
== END 2019-03-03 17:34 | disposition home or self-care (01) | DRG 193 ==
LOC: ED 14:25 → 2S 18:06 → SUATTDRO 18:06 → 2S 18:57